=== PATIENT | female | born 1940 | race Caucasian/White ===

== ENCOUNTER → 2017-05-21 | Outpatient (CLI) | payer MEDICARE ==
[~2017-05-21] MED LIST: GABAPENTIN300 MG PO; LOSARTAN POTASS50 MG PO; NAPROXEN500 MG PO; PRAVASTATIN SOD80 MG PO; ZETIA10 MG PO
--- NOTE | 2017-05-24 16:03 | Diagnostic Imaging Report ---
Examination: MRI SPINE LUMBAR WITHOUT CONTRAST History: 77-year-old female with chronic back pain radiating down the right lower extremity. Comparison studies: X-rays of lumbar spine performed April 28, 2017 and June 02, 2010. Technique: Sagittal, coronal and axial T2 , sagittal T1 and STIR; axial spin density oblique. Findings: Number of lumbar vertebral bodies: Five. Alignment: Normal lordosis. Mild leftward curvature centered at L3-L4. Soft tissues: No T2 hyperintense inflammatory changes. Posterior paraspinal soft tissues and muscles: No abnormality. Lower thoracic cord: Normal in signal and morphology. The tip of the conus is at L1-L2. Cauda equina: No masses. No arachnoiditis. Vertebrae: No fractures, infection or neoplasm. Degenerative changes: L1-L2: Asymmetric to the right disc bulge results in mild canal stenosis and moderate right and mild left neural foraminal narrowing. L2-L3: Asymmetric to the right disc bulge results in moderate right and mild left neural foraminal narrowing and mild canal stenosis. L3-L4: Asymmetric to the right disc bulge, mild bilateral facet arthropathy and prominent posterior epidural fat result in moderate right neural foraminal narrowing and moderate canal stenosis. No left foraminal narrowing. L4-L5: Diffuse disc bulge with central disc protrusion and mild bilateral facet arthropathy result in mild bilateral neural foraminal narrowing and severe canal stenosis. L5-S1: Diffuse disc bulge and mild bilateral facet arthropathy result in moderate left neural foraminal narrowing. No right foraminal or canal stenosis. IMPRESSION: 1. Degenerative changes at L2-L5 S1 with severe canal stenosis at L4-L5, moderate canal stenosis at L3-L4 and mild canal stenosis at L1-L2 and L2-L3. 2. Moderate right foraminal narrowing from L1-L2 through L3-L4 and moderate left foraminal narrowing at L5-S1. 3. Mild leftward curvature centered at L3-L4. Signed by: Dr. Nikkie Hill M.D. on 05/24/2017 3:59 PM
== END ==
LOC: MRI 14:08
PROVIDERS: ATTEND Family Medicine
DX: M48.061 Spinal stenosis, lumbar region without neurogenic claudication (principal); M51.36 Other intervertebral disc degeneration, lumbar region
CPT/HCPCS: 72148

== ENCOUNTER → 2018-07-16 | Day surgery (SDC) | payer MEDICARE ==
[~2018-07-16] MED LIST changes: +CENTRUM SILVER1 EAC3 PO; +CYMBALTA60 MG PO; +FAMOTIDINE20 MG PO; +FENTANYL CITRATE/PF 100MCG/2 ML INJ ONE; +FERROUS SULFAT325 MG PO; +LOSARTAN-HCTZ1 EAC1 PO; +MIDAZOLAM HCL 2 MG/2 ML VIAL ONE; +PROPOFOL IV EMULSION 10 MG/ML 50 ML VIAL ONE; +VITAMIN D32000 UNIT PO; +tylenol PO
--- OUTSIDE RECORDS SUMMARY | 2018-07-16 08:35 | XMS REPORT ---
Author Axel Howe [facility] eClinicalWorks Address Unknown Phone Unavailable Care Team Providers Care Dipper Operator Name Role Phone Axel Zhang CP Unavailable Encounters Encounter Location Date Referral Axel Zhang MD October 19, 2013 pt call Axel Zhang MD November 02, 2013 LEG PAINS Axel Zhang MD September 24, 2013 Unknown Axel Zhang MD October 14, 2013 New order form For MRI Axel Zhang MD September 28, 2013 refill hydrocodone Axel Zhang MD November 19, 2013 Gabapentin Axel Zhang MD September 25, 2013 reschedule f/u Axel Zhang MD September 24, 2013 Gabapentin Axel Zhang MD November 18, 2013 MRI Axel Zahng MD November 06, 2013 Pt back pain update Axel Zhang MD November 18, 2013 Problems Problem Type Condition ICD-9 Code Onset Dates Condition Status Problem Allergy, unspecified not elsewhere classified 995.3 Active Problem Inflammatory Arthritis 714.0 Active Problem Lumbar Radiculopathy 724.4 Active Problem Polyarthritis, multiple sites 716.59 Active Social History Social History Element Qualifiers Date Reported Tobacco Use: . Are you a:: former smoker , How long has it been since you last smoked?: 5-10 years October 14, 2013 Pets: . dogs October 14, 2013 Caffeine: yes. frequency:, 1-5 October 14, 2013 Exercise: yes. walking 3 times a week October 14, 2013 Alcohol: no. October 14, 2013 Occupation: . retired October 14, 2013 Summary Purpose eClinicalWorks Submission
--- OUTSIDE RECORDS SUMMARY | 2018-07-16 08:35 | XMS REPORT ---
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 Name Role Phone Axel Zhang Unavailable Encounters Encounter Location Date Referral Axel Zhang MD October 19, 2013 New order form For MRI Axel Zhang MD September 28, 2013 Gabapentin Axel Zhang MD September 25, 2013 reschedule f/u Axel Zhang MD September 24, 2013 Problems Problem Type Condition ICD-9 Code Onset Dates Condition Status Problem Allergy, unspecified not elsewhere classified 995.3 Active Problem Inflammatory Arthritis 714.0 Active Problem Lumbar Radiculopathy 724.4 Active Problem Polyarthritis, multiple sites 716.59 Active Assessment Inflammatory Arthritis 714.0 Active Medications Medication Code System Code Instructions Start Date End Date Status Dosage Gabapentin MEDISPAN [address]-05 300 MG Orally at bedtime September 24, 2013 Active 1 -2 capsule Hydrocodone-Acetaminophen MEDISPAN [address]-61 5-325 MG Orally every 12 hours September 24, 2013 October 24, 2013 Active 1 tablet as needed Social History Social History Element Qualifiers Date [...]
--- OUTSIDE RECORDS SUMMARY | 2018-07-16 08:35 | XMS REPORT | Continuity of Care Document ---
Author Author [facility] Interface Address Unknown Phone Unavailable Problems Problem Status Onset Date Classification Date Reported Comments Source Z12.31 - ENCNTR SCREEN MAMMOGRAM FOR MA Active 12/17/2016 [facility] SOB Active 06/01/2014 [place] Inflammatory Arthritis Active Diagnosis 06/10/2014 Aristides Zhang Polyarthritis, multiple sites Active Problem 06/10/2014 Aristides Zhang Allergy, unspecified not elsewhere classified Active Problem 06/10/2014 Aristides Zhang Lumbar Radiculopathy Active Problem 06/10/2014 Aristides Zhang Unspecified drug dependence Active Diagnosis 06/10/2014 Aristides Zhang Abnormal CHARLIE Active Problem 06/10/2014 Aristides Zhang Medications Medication Details Route Status Patient Instructions Ordering Provider Order Date Source Meloxicam 1 tablet Orally No Longer Active 7.5 MG Orally bid Leslie 05/18/2014 Aristides Zhang Hydrocodone-Acetaminophen 1 tablet as needed Orally No Longer Active 2.5-500 MG Orally every 6 hrs Leslie 11/19/2013 Aristides Zhang Gabapentin 1 -2 capsule Orally Active 300 MG Orally at bedtime Zhang 09/24/2013 Aristides Zhang Hydrocodone-Acetaminophen 1 tablet as needed Orally Active 5- 325 MG Orally every 12 hours Zhang 09/24/2013 Aristides Zhang Hydrocodone-Acetaminophen 1 tablet as needed Orally Active 5- 325 MG Orally every 12 hours Ol[place] 09/24/2013 Aristides Zhang Alendronate Sodium 1 tablet Orally Active 70 MG Orally [place] Aristides Zhang Pravastatin Sodium 1 tablet Orally Active 80 MG Orally Once a day Leslie Aristides Zhang Zetia 1 tablet Orally Active 10 MG Orally Once a day Leslie Aristides Zhang Naproxen 1 tablet as needed Orally Active 500 MG Orally every 12 hrs Leslie Aristides Zhang Losartan Potassium-HCTZ 1 tablet Orally Active 50-12.5 MG Orally Once a day Leslie Aristides Zhang Tramadol one tab orally Active 50 mg orally every 4-6 hours prn pain Leslie Aristides Zahng Duloxetine HCl 1 capsule Orally Active 30 MG Orally qd Leslie Aristides Zhang Aspirin 1 tablet Orally Active 81 MG Orally Once a day Leslie Aristides Zhang Gabapentin 2 caps NA Active 300 mg qd pm Leslie Aristides Zhang Ranitidine 75 as directed Orally Active 75 MG Orally three times a day Amarilis Zhang Cetirizine HCl 1 tablet Orally Active 10 MG Orally Twice a day Amarilis Zhang Allergies, Adverse Reactions, Alerts Substance Category Reaction Severity Reaction type Status Date Reported Comments Source N.K.D.A. Adverse Reaction Info Not Available Adverse Reaction Active 05/31/2014 Aristides Zhang Immunizations Immunization Date Given Site Status Last Updated Comments Source Results Order Name Results Value Reference Range Date Interpretation Comments Source Breast Mammo Diag UNI incl CAD MA Breast Mammo Diag UNI incl CAD MA - BREAST MAMMO DIAG UNI INCL CAD MA/R UNILATERAL RIGHT DIGITAL DIAGNOSTIC MAMMOGRAM WITH CAD: 01/02/2017 CLINICAL: Other Abnormal And Inconclusive Findings On Diagnostic Imaging Of Breast/R92.8. Current study was evaluated with a Computer Aided Detection (CAD) system. Comparison is made to exams dated: 12/22/2016 mammogram, 05/12/2014 mammogram, 05/09/2013 mammogram, 04/07/2012 mammogram - [facility], 02/09/2011 mammogram and 04/21/2009 mammogram - [facility]. There are scattered fibroglandular densities in the right breast. There is a group of lucent-centered calcifications in the right breast at 1 o'clock middle depth 8 cm from the nipple. This is not significantly changed in overall distribution since 2013. No other significant masses or calcifications are seen in the breast. IMPRESSION: BENIGN The grouped lucent-centered calcifications in the right breast appear benign. There is no mammographic evidence of malignancy. A 1 year screening mammogram is recommended. Professional services are provided by the [facility]. Jez Benoit M.D. cm/:01/02/2017 13:09:40 Licensed Professional Counselor: Shanta LOPEZ(R)(Kori), [facility] This exam was dictated and [facility] [id number] [facility] letter sent: Normal exam Mammogram BI-RADS: 2 Benign 01/02/2017 - - Read by: Randolph Calle MD Dictated Date/time: 01/02/17 13:09 Electronically Signed by: Randolph Calle MD 01/02/17 13:09 FINAL REPORT [facility] Breast Mammo Scrn MIGUEL incl CAD MA Breast Mammo Scrn MIGUEL incl CAD MA - BREAST MAMMO SCRN MIGUEL INCL CAD MA BILATERAL DIGITAL SCREENING MAMMOGRAM WITH CAD: 12/22/2016 CLINICAL: Screening/Z12.31. Current study was evaluated with a Computer Aided Detection (CAD) system. Comparison is made to exams dated: 05/12/2014 mammogram, 05/09/2013 mammogram and 04/07/2012 mammogram - [facility]. There are scattered fibroglandular densities in both breasts. There is a cluster of calcifications in the right breast at 1 o'clock middle depth 8 cm from the nipple. No other significant masses, calcifications, or other findings are seen in either breast. IMPRESSION: INCOMPLETE: NEEDS ADDITIONAL IMAGING EVALUATION The cluster of calcifications in the right breast is indeterminate. Spot magnification views are recommended. Professional services are provided by the [facility]. Ana Maria Quinteros M.D. /penrad:12/24/2016 11:34:17 Licensed Professional Counselor: Karol Lake [facility] This exam was dictated and interpreted by [id number] at [facility]. letter sent: Additional Imaging Mammogram BI-RADS: 0 Indeterminate 12/22/2016 - - Read by: Ana Maria Quinteros MD Dictated Date/time: 12/24/16 11:34 Electronically Signed by: Ana Maria Quinteros MD 12/24/16 11:34 FINAL REPORT [facility] Chest 2 views Chest 2 views Examination: Chest x-ray, 2 views History: 714.0 Rheumatoid Arthritis Comparison: 07/20/2013 Findings: The lungs are clear and without focal consolidation. The cardiomediastinal silhouette is within normal limits. No pleural effusion or pneumothorax is seen. The osseous structures are without focal abnormality. IMPRESSION: No acute cardiopulmonary disease. SL: 16 06/08/2014 - - Read by: Mckay Sanchez MD Dictated Date/time: 01/06/15 15:35 Electronically Signed by: Mckay Sanchez MD 06/08/14 15:35 FINAL REPORT [facility] Vital Signs Vital Sign Value Date Comments Source BMI Calculated 35.23 06/08/[address] [facility] Weight 81.818 06/08/[address] [facility] Height 152.4 cm 06/08/[address] [facility] Weight 179 05/31/2014 Aristides Zhang Height 61 05/31/2014 Aristides Zhang Temperature Oral (F) 98.2 F 05/31/2014 Aristides Zhang Heart Rate 76 05/31/2014 Aristides Zhang Diastolic (mm Hg) 84 05/31/2014 Aristides Zhang Systolic (mm Hg) 124 05/31/2014 Aristides Zhang Weight 183 10/14/2013 Aristides Zhang Height 61 10/14/2013 Aristides Zhang Weight 182 09/24/2013 Aristides Zhang Height 61 09/24/2013 Aristides Zhang Temperature Oral (F) 98.4 F 09/24/2013 Aristides Zhang Heart Rate 80 09/24/2013 Aristides Zhang Diastolic (mm Hg) 80 09/24/2013 Aristides Zhang Systolic (mm Hg) 130 09/24/2013 Aristides Zhang Encounters Location Location Details Encounter Type Encounter Number Reason For Visit Attending Provider ADM Date DC Date Status Source Axel Zhang MD LE[facility]INS [id number] 09/24/2013 09/24/2013 Aristides Zhang MD [facility] [id number] 09/24/2013 09/24/2013 Aristides Zhang MD LEG PAINS [id number] 09/24/2013 09/24/2013 Aristides Zhang MD LEG PAINS [id number] 09/24/2013 09/24/2013 Aristides Zhang MD LE[facility]INS [id number] 09/24/2013 09/24/2013 Aristides Zhang MD [facility] [id number] 09/24/2013 09/24/2013 Aristides Zhang MD LE[facility]INS [id number] 09/24/2013 09/24/2013 Aristides Zhang MD LEG PAINS [id number] 09/24/2013 09/24/2013 Aristides Zhang MD LEG PAINS [id number] 09/24/2013 09/24/2013 Aristides Zhang MD reschedule f/u [id number] 09/24/2013 09/24/2013 Aristides Zhang MD reschedule f/u [id number] 09/24/2013 09/24/2013 Arisitdes Zhang MD reschedule f/u [id number] 09/24/2013 09/24/2013 Aristides Zhang MD reschedule f/u [id number] 09/24/2013 09/24/2013 Aristides Zhang MD reschedule f/u [id number] 09/24/2013 09/24/2013 Aristides Zhang MD reschedule f/u [id number] 09/24/2013 09/24/2013 Aristides Zhang MD reschedule f/u [id number] 09/24/2013 09/24/2013 Aristides Zhang MD reschedule f/u [id number] 09/24/2013 09/24/2013 Aristides Zhang MD reschedule f/u [id number] 09/24/2013 09/24/2013 Aristides Zhang MD reschedule f/u [id number] 09/24/2013 09/24/2013 Aristides Zhang MD reschedule f/u [id number] 09/24/2013 09/24/2013 Aristides Zhang MD Gabapentin [id number] 09/25/2013 09/25/2013 Aristides Zhang MD Gabapentin [id number] 09/25/2013 09/25/2013 Aristides Zhang MD Gabapentin [id number] 09/25/2013 09/25/2013 Aristides Zhang MD Gabapentin [id number] 09/25/2013 09/25/2013 Aristides Zhang MD Gabapentin [id number] 09/25/2013 09/25/2013 Aristides Zhang MD Gabapentin [id number] 09/25/2013 09/25/2013 Aristides Zhang MD Gabapentin [id number] 09/25/2013 09/25/2013 Aristides Zhang MD Gabapentin [id number] 09/25/2013 09/25/2013 Aristides Zhang MD Gabapentin [id number] 09/25/2013 09/25/2013 Aristides Zhang MD Gabapentin [id number] 09/25/2013 09/25/2013 Aristides Zhang MD Gabapentin [id number] 09/25/2013 09/25/2013 Aristides Zhang MD Gabapentin [id number] 09/25/2013 09/25/2013 Aristides Zhang MD New order form For MRI [id number] 09/28/2013 09/28/2013 Aristides Zhang MD New order form For MRI [id number] 09/28/2013 09/28/2013 Aristides Zhang MD New order form For MRI [id number] 09/28/2013 09/28/2013 Aristides Zhang MD New order form For MRI [id number] 09/28/2013 09/28/2013 Aristides Zhang MD New order form For MRI [id number] 09/28/2013 09/28/2013 Aristides Zhang MD New order form For MRI [id number] 09/28/2013 09/28/2013 Aristides Zhang MD New order form For MRI [id number] 09/28/2013 09/28/2013 Aristides Zhang MD New order form For MRI [id number] 09/28/2013 09/28/2013 Aristides Zhang MD New order form For MRI [id number] 09/28/2013 09/28/2013 Aristides Zhang MD New order form For MRI [id number] 09/28/2013 09/28/2013 Aristides Zhang MD New order form For MRI [id number] 09/28/2013 09/28/2013 Aristides Zhang MD New order form For MRI [id number] 09/28/2013 09/28/2013 Aristides Zhang MD New order form For MRI [id number] 09/28/2013 09/28/2013 Aristides Zhang MD Unknown [id number] 10/14/2013 10/14/2013 Aristides Zhang MD Unknown [id number] 10/14/2013 10/14/2013 Aristides Zhang MD Unknown [id number] 10/14/2013 10/14/2013 Aristides Zhang MD Unknown [id number] 10/14/2013 10/14/2013 Aristides Zhang MD Unknown [id number] 10/14/2013 10/14/2013 Aristides Zhang MD Unknown [id number] 10/14/2013 10/14/2013 Aristides Zhang MD Unknown [id number] 10/14/2013 10/14/2013 Aristides Zhang MD Unknown [id number] 10/14/2013 10/14/2013 Aristides Zhang MD Unknown [id number] 10/14/2013 10/14/2013 Aristides Zhang MD Referral [id number] 10/19/2013 10/19/2013 Aristides Zhang MD Referral [id number] 10/19/2013 10/19/2013 Aristides Zhang MD Referral [id number] 10/19/2013 10/19/2013 Aristides Zhang MD Referral [id number] 10/19/2013 10/19/2013 Aristides Zhang MD Referral [id number] 10/19/2013 10/19/2013 Aristides Zhang MD Referral [id number] 10/19/2013 10/19/2013 Aristides Zhang MD Referral [id number] 10/19/2013 10/19/2013 Aristides Zhang MD Referral [id number] 10/19/2013 10/19/2013 Aristides Zhang MD Referral [id number] 10/19/2013 10/19/2013 Aristides Zhang MD Referral [id number] 10/19/2013 10/19/2013 Aristides Zhang MD pt call [id number] 11/02/2013 11/02/2013 Aristides Zhang MD pt call [id number] 11/02/2013 11/02/2013 Aristides Zhang MD pt call [id number] 11/02/2013 11/02/2013 Aristides Zhang MD pt call [id number] 11/02/2013 11/02/2013 Aristides Zhang MD pt call [id number] 11/02/2013 11/02/2013 Aristides Zhang MD pt call [id number] 11/02/2013 11/02/2013 Aristides Zhang MD pt call [id number] 11/02/2013 11/02/2013 Aristides Zhang MD pt call [id number] 11/02/2013 11/02/2013 Aristides Zhang MD pt call [id number] 11/02/2013 11/02/2013 Aristides Zhang MD MRI [id number] 11/06/2013 11/06/2013 Aristides Zhang MD MRI [id number] 11/06/2013 11/06/2013 Aristides Zhang MD MRI [id number] 11/06/2013 11/06/2013 Aristides Zhang MD MRI [id number] 11/06/2013 11/06/2013 Aristides Zhang MD MRI [id number] 11/06/2013 11/06/2013 Aristides Zhang MD MRI [id number] 11/06/2013 11/06/2013 Aristides Zhang MD MRI [id number] 11/06/2013 11/06/2013 Aristides Zhang MD MRI [id number] 11/06/2013 11/06/2013 Aristides Zhang MD MRI [id number] 11/06/2013 11/06/2013 Aristides Zhang MD Pt back pain update [id number] 11/18/2013 11/18/2013 Aristides Zhang MD Pt back pain update [id number] 11/18/2013 11/18/2013 Aristides Zhang MD Pt back pain update [id number] 11/18/2013 11/18/2013 Aristides Zhang MD Pt back pain update [id number] 11/18/2013 11/18/2013 Aristides Zhang MD Pt back pain update [id number] 11/18/2013 11/18/2013 Aristides Zhang MD Pt back pain update [id number] 11/18/2013 11/18/2013 Aristides Zhang MD Pt back pain update [id number] 11/18/2013 11/18/2013 Aristides Zhang MD Pt back pain update [id number] 11/18/2013 11/18/2013 Aristides Zhang MD Pt back pain update [id number] 11/18/2013 11/18/2013 Aristides Zhang MD Gabapentin [id number] 11/18/2013 11/18/2013 Aristides Zhang MD Gabapentin [id number] 11/18/2013 11/18/2013 Aristides Zhang MD Gabapentin [id number] 11/18/2013 11/18/2013 Aristides Zhang MD Gabapentin [id number] 11/18/2013 11/18/2013 Aristides Zhang MD Gabapentin [id number] 11/18/2013 11/18/2013 Aristides Zhang MD Gabapentin [id number] 11/18/2013 11/18/2013 Aristides Zhang MD Gabapentin [id number] 11/18/2013 11/18/2013 Aristides Zhang MD Gabapentin [id number] 11/18/2013 11/18/2013 Aristides Zhang MD Gabapentin [id number] 11/18/2013 11/18/2013 Aristides Zhang MD refill hydrocodone [id number] 11/19/2013 11/19/2013 Aristides Zhang MD refill hydrocodone [id number] 11/19/2013 11/19/2013 Aristides Zhang MD refill hydrocodone [id number] 11/19/2013 11/19/2013 Aristides Zhang MD refill hydrocodone [id number] 11/19/2013 11/19/2013 Aristides Zhang MD refill hydrocodone [id number] 11/19/2013 11/19/2013 Aristides Zhang MD refill hydrocodone [id number] 11/19/2013 11/19/2013 Aristides Zhang MD refill hydrocodone [id number] 11/19/2013 11/19/2013 Aristides Zhang MD refill hydrocodone [id number] 11/19/2013 11/19/2013 Aristides Zhang MD refill hydrocodone [id number] 11/19/2013 11/19/2013 Aristides Zhang MD No longer wants to be seen here [id number] 12/15/2013 12/15/2013 Aristides Zhang MD No longer wants to be seen here [id number] 12/15/2013 12/15/2013 Aristides Zhang [facility] [id number] Angel Zepeda 05/12/2014 05/13/2014 LINO Zhang MD F/U [id number] 05/31/2014 05/31/2014 Aristides Zhang [facility] Outpatient [id number] Celiamarina Leslie 06/08/2014 06/09/2014 [facility] [id number] Howard Cardenas 12/22/2016 12/23/2016 LINO Wayne [facility] [id number] Howard Cardenas 01/02/2017 01/03/2017 [facility] Procedures Procedure Code Date Perfomer Comments Source
--- OUTSIDE RECORDS SUMMARY | 2018-07-16 08:35 | XMS REPORT ---
Author Ramiro Mosley [facility] eClinicalWorks Address Unknown Phone Unavailable Care Team Providers Care Slope Tender Name Role Phone Ramiro Olmos Unavailable Allergies, Adverse Reactions, Alerts Substance Reaction Event Type N.K.D.A. Info Not Available Non Drug Allergy Encounters Encounter Location Date Referral Aexl Zhang MD October 19, 2013 pt call Axle Zhang MD November 02, 2013 LEG PAINS Axel Zhang MD September 24, 2013 Unknown Axel Zhang MD October 14, 2013 New order form For MRI Axel Zhang MD September 28, 2013 refill hydrocodone Axel Zhang MD November 19, 2013 Gabapentin Axel Zhang MD September 25, 2013 reschedule f/u Axel Zhang MD September 24, 2013 Gabapentin Axel Zhang MD November 18, 2013 MRI Axel Zhang MD November 06, 2013 Pt back pain update Axel Zhang MD November 18, 2013 Problems Problem Type Condition ICD-9 Code Onset Dates Condition Status Problem Inflammatory Arthritis 714.0 Active Problem Polyarthritis, multiple sites 716.59 Active Problem Allergy, unspecified not elsewhere classified 995.3 Active Assessment Inflammatory Arthritis 714.0 Active Assessment Lumbar Radiculopathy 724.4 Active Medications Medication Code System Code Instructions Start Date End Date Status Dosage Pravastatin Sodium [facility] [address]-50 80 MG Orally Once a day Active 1 tablet Alendronate Sodium [facility] [address]-79 70 MG Orally Active 1 tablet Tramadol Unknown 0 50 mg orally every 4-6 hours prn pain Active one tab Gabapentin [facility] [address]-08 300 MG Orally at bedtime September 24, 2013 Active 1 -2 capsule Hydrocodone-Acetaminophen [facility] [address]-04 5-325 MG Orally every 12 hours September 24, 2013 October 24, 2013 Active 1 tablet as needed Ranitidine 75 [facility] [address]-19 75 MG Orally three times a day Active as directed Cetirizine HCl [facility] [address]-95 10 MG Orally Twice a day Active 1 tablet Zetia [facility] [address]-12 10 MG Orally Once a day Active 1 tablet Losartan Potassium-HCTZ [facility] [address]-42 50-12.5 MG Orally Once a day Active 1 tablet Social History Social History Element Qualifiers Date [...] 2013 Occupation: . retired October 14, 2013 Vital Signs Date/Time: September 24, 2013 Weight 182 lbs Height 61 in Temperature 98.4 F Cardiac Monitoring Heart Rate 80 /min Blood Pressure Diastolic 80 mm Hg Blood Pressure Systolic 130 mm Hg Results CYCLIC CITRULLINATED PEPTIDE (CCP) AB (IGG) CYCLIC CITRULLINATED PEPTIDE (CCP) AB (IGG)(- UNITS) <16 CHARLIE IFA SCREEN W/REFL TO TITER AND PATTERN, IFA CHARLIE SCREEN, IFA(-NEGATIVE ) POSITIVE CHARLIE TITER(- titer) > OR=1:1280 CHARLIE PATTERN(- ) CENTROMERE Centromere Antibody Screen CENTROMERE B ANTIBODY(-<1.0 NEG AI) >8.0 POS COMPREHENSIVE METABOLIC PANEL W/EGFR SODIUM(-135-146 mmol/L) 137 BUN/CREATININE RATIO(-6-22 (calc)) NOT APPLICABLE CHLORIDE(-98-110 mmol/L) 101 POTASSIUM(-3.5-5.3 mmol/L) 4.3 CALCIUM(-8.6-10.4 mg/dL) 9.3 PROTEIN, TOTAL(-6.1-8.1 g/dL) 7.0 CARBON DIOXIDE(-19-30 mmol/L) 28 ALBUMIN/GLOBULIN RATIO(-1.0-2.5 (calc)) 1.5 eGFR NON-AFR. [place]AN(-> OR=60 mL/min/1.73m2) 73 BILIRUBIN, TOTAL(-0.2-1.2 mg/dL) 0.3 eGFR (-> OR=60 mL/min/1.73m2) 84 UREA NITROGEN (BUN)(-7-25 mg/dL) 18 ALBUMIN(-3.6-5.1 g/dL) 4.2 GLOBULIN(-1.9-3.7 g/dL (calc)) 2.8 CREATININE(-0.60-0.93 mg/dL) 0.81 ALT(-6-29 U/L) 22 GLUCOSE(-65-99 mg/dL) 85 ALKALINE PHOSPHATASE(-33-130 U/L) 60 AST(-10-35 U/L) 20 SED RATE BY MODIFIED WESTERGREN SED RATE BY MODIFIED WESTERGREN(-< OR=30 mm/h) 14 SCL-70 ANTIBODY SCL-70 ANTIBODY(-<1.0 NEG AI) <1.0 NEG CBC (INCLUDES DIFF/PLT) WHITE BLOOD CELL COUNT(-3.8-10.8 Thousand/uL) 8.9 RED BLOOD CELL COUNT(-3.80-5.10 Million/uL) 4.47 HEMOGLOBIN(-11.7-15.5 g/dL) 12.3 RDW(-11.0-15.0 %) 14.8 PLATELET COUNT(-140-400 Thousand/uL) 325 BASOPHILS(- %) 0.4 EOSINOPHILS(- %) 5.1 HEMATOCRIT(-35.0-45.0 %) 38.7 MONOCYTES(- %) 8.7 MCV(-80.0-100.0 fL) 86.7 LYMPHOCYTES(- %) 17.6 MCH(-27.0-33.0 pg) 27.5 NEUTROPHILS(- %) 68.2 MCHC(-32.0-36.0 g/dL) 31.7 ABSOLUTE NEUTROPHILS(-4244-7134 cells/uL) 6070 ABSOLUTE LYMPHOCYTES(-850-3900 cells/uL) 1566 ABSOLUTE MONOCYTES(-200-950 cells/uL) 774 ABSOLUTE EOSINOPHILS(-15-500 cells/uL) 454 ABSOLUTE BASOPHILS(-0-200 cells/uL) 36 RHEUMATOID FACTOR RHEUMATOID FACTOR(-<14 IU/mL) 11 C-REACTIVE PROTEIN C-REACTIVE PROTEIN(-<0.80 mg/dL) 0.95 Summary Purpose eClinicalWorks Submission
--- OUTSIDE RECORDS SUMMARY | 2018-07-16 08:35 | XMS REPORT ---
Author Axel Howe [facility] eClinicalWorks Address Unknown Phone Unavailable Care Team Providers Care Actionscript Developer Name Role Phone Axel Zhang CP Unavailable [...] 716.59 Active Assessment Inflammatory Arthritis 714.0 Active Social History Social History Element Qualifiers [...]
--- OUTSIDE RECORDS SUMMARY | 2018-07-16 08:35 | XMS REPORT ---
Author Axel Howe [facility] eClinicalWorks Address Unknown Phone Unavailable Care Team Providers Care Oracle Database Consultant Name Role Phone Axel Zhang Unavailable Encounters Encounter Location Date New order form For MRI Axel Zhang MD September 28, 2013 Gabapentin Axel Zhang MD September 25, 2013 Problems Problem Type Condition ICD-9 Code Onset Dates Condition Status Problem Inflammatory Arthritis 714.0 Active Problem Polyarthritis, multiple sites 716.59 Active Problem Allergy, unspecified not elsewhere classified 995.3 Active Medications Medication Code System Code Instructions Start Date End Date Status Dosage Gabapentin [facility] [address]-89 300 MG Orally at bedtime September 24, 2013 Active 1 -2 capsule Social History Social History Element Qualifiers Date Reported Pets: . dogs September 24, 2013 Caffeine: yes. frequency:, 1-5 September 24, 2013 Exercise: yes. walking 3 times a week September 24, 2013 Alcohol: no. September 24, 2013 Occupation: . retired September 24, 2013 Vital Signs Date/Time: September 24, 2013 Weight 182 lbs Height 61 inches Temperature 98.4 F Cardiac Monitoring Heart Rate 80 Beats per Minute Blood Pressure Diastolic 80 mm Hg Blood Pressure Systolic 130 mm Hg Summary Purpose eClinicalWorks Submission
--- OUTSIDE RECORDS SUMMARY | 2018-07-16 08:35 | XMS REPORT ---
Author Axel Howe [facility] eClinicalWorks Address Unknown Phone Unavailable Care Team Providers Care Nylon Machine Operator Name Role Phone Axel Zhang CP [...]
--- OUTSIDE RECORDS SUMMARY | 2018-07-16 08:35 | XMS REPORT ---
Author Author Axel Zhang [facility] eClinicalWorks Address Unknown Phone Unavailable Care Team Providers Care Stockbroker Name Role Phone Axel Zhang CP Unavailable Encounters Encounter Location Date New order form For MRI Axel Zhang MD September 28, 2013 Problems Problem Type Condition ICD-9 Code Onset Dates Condition Status Problem Inflammatory Arthritis 714.0 Active Problem Polyarthritis, multiple sites 716.59 Active Problem Allergy, unspecified not elsewhere classified 995.3 Active Assessment Lumbar Radiculopathy 724.4 Active Social History Social History Element Qualifiers [...]
--- OUTSIDE RECORDS SUMMARY | 2018-07-16 08:35 | XMS REPORT ---
Author Axel Howe [facility] eClinicalWorks Address Unknown Phone Unavailable Care Team Providers Care Avionics Repair Technician Name Role Phone Axel Zhang CP Unavailable [...] Active Problem Polyarthritis, multiple sites 716.59 Active Medications Medication Code System Code Instructions Start Date End Date Status Dosage Hydrocodone-Acetaminophen [facility] [address]-43 2.5-500 MG Orally every 6 hrs November 19, 2013 Active 1 tablet as needed Social [...]
--- OUTSIDE RECORDS SUMMARY | 2018-07-16 08:35 | XMS REPORT ---
Author Axel Howe [facility] eClinicalWorks Address Unknown Phone Unavailable Care Team Providers Care Primer Assembler Name Role Phone Axel Zhang CP Unavailable [...] Start Date End Date Status Dosage Gabapentin [facility] [address]-08 300 MG Orally at bedtime September 24, [...]
--- OUTSIDE RECORDS SUMMARY | 2018-07-16 08:35 | XMS REPORT ---
Author Axel Howe [facility] eClinicalWorks Address Unknown Phone Unavailable Care Team Providers Care Slab Depiler Operator Name Role Phone Axel Zhang Unavailable Encounters [...] Allergy, unspecified not elsewhere classified 995.3 Active Social History Social History Element Qualifiers [...]
--- OUTSIDE RECORDS SUMMARY | 2018-07-16 08:35 | XMS REPORT ---
Author Ramiro Mosley [facility] eClinicalWorks Address Unknown Phone Unavailable Care Team Providers Care Patient Care Coordinator Name Role Phone Ramiro Olmos Unavailable Allergies, Adverse Reactions, Alerts Substance Reaction Event Type N.K.D.A. Info Not Available Non Drug Allergy Encounters Encounter Location Date Referral Axel Zhang MD October 19, 2013 pt call Axel Zhang MD November 02, 2013 LEG PAINS Axel Zhang MD September 24, 2013 Unknown Axel Zahng MD October 14, 2013 New order form For MRI Axel Zhang MD September 28, 2013 refill hydrocodone Axel Zhang MD November 19, 2013 Gabapentin Axel Zhang MD September 25, 2013 reschedule f/u Axel Zhang MD September 24, 2013 Gabapentin Axel Zhagn MD November 18, 2013 MRI Axel Zhang MD November 06, 2013 Pt back pain update Axel Zhang MD November 18, 2013 Problems Problem Type Condition ICD-9 Code Onset Dates Condition Status Problem Allergy, unspecified not elsewhere classified 995.3 Active Problem Inflammatory Arthritis 714.0 Active Problem Lumbar Radiculopathy 724.4 Active Assessment Lumbar Radiculopathy 724.4 Active Problem Polyarthritis, multiple sites 716.59 Active Assessment Polyarthritis, multiple sites 716.59 Active Medications Medication Code System Code Instructions Start Date End Date Status Dosage [facility]ate [facility] [address]-34 70 MG Orally Active 1 tablet Pravastatin Sodium [facility] [address]-33 80 MG Orally Once a day Active 1 tablet Hydrocodone-Acetaminophen [facility] [address]-59 5-325 MG Orally every 12 hours September 24, 2013 October 24, 2013 Active 1 tablet as needed Zetia [facility] [address]-50 10 MG Orally Once a day Active 1 tablet Gabapentin [facility] [address]-62 300 MG Orally at bedtime September 24, 2013 Active 1 -2 capsule Naproxen [facility] [address]-76 500 MG Orally every 12 hrs Active 1 tablet as needed Losartan Potassium-HCTZ [facility] [address]-28 50-12.5 MG Orally Once a day Active 1 tablet Tramadol Unknown 0 50 mg orally every 4-6 hours prn pain Active one tab Social History Social History Element Qualifiers Date [...] retired October 14, 2013 Vital Signs Date/Time: October 14, 2013 Weight 183 lbs Height 61 in Results DS DNA-Crithidia Ifa w/ Reflex DNA AB (DS) CRITHIDIA,IFA(-NEGATIVE ) NEGATIVE DNA AB (DS) CRITHIDIA TITER(- ) TNP C3, C4, COMPLEMENT COMPLEMENT COMPONENT C3C(- mg/dL) 161 COMPLEMENT COMPONENT C4C(-ADULTS: 16-47 mg/dL) 47 COMPLEMENT, TOTAL (CH50)(-31-60 U/mL) 50 SM AND SM/BREAKER TENDER ANTIBODIES SM/BREAKER TENDER ANTIBODY(-<1.0 NEG AI) <1.0 NEG SM ANTIBODY(-<1.0 NEG AI) <1.0 NEG Summary Purpose eClinicalWorks Submission
--- OUTSIDE RECORDS SUMMARY | 2018-07-16 08:36 | XMS REPORT ---
Author Author Rita Nelson [facility] eClinicalWorks Address Unknown Phone Unavailable Care Team Providers Care Color Card Maker Name Role Phone Rita Nelson Unavailable Allergies, Adverse Reactions, Alerts Substance Reaction Event Type N.K.D.A. Info Not Available Non Drug Allergy Encounters Encounter Location Date Referral Axel Zhang MD October 19, 2013 pt call Axel Zhang MD November 02, 2013 LEG PAINS Axle Zhang MD September 24, 2013 Unknown Axel Zhang MD October 14, 2013 New order form For MRI Axel Zhang MD September 28, 2013 Gabapentin Axel Zhang MD September 25, 2013 reschedule f/u Axel Zhang MD September 24, 2013 Gabapentin Axel Zhang MD November 18, 2013 MRI Axel Zhang MD November 06, 2013 Pt back pain update Axel Zhang MD November 18, 2013 F/U Axel Zhang MD May 31, 2014 refill hydrocodone xAel Zhang MD November 19, 2013 No longer wants to be seen here Axel Zhang MD December 15, 2013 Problems Problem Type Condition ICD-9 Code Onset Dates Condition Status Assessment Inflammatory Arthritis 714.0 Active Assessment Unspecified drug dependence 304.90 Active Problem Abnormal CHARLIE 795.79 Active Problem Lumbar Radiculopathy 724.4 Active Problem Unspecified drug dependence 304.90 Active Problem Polyarthritis, multiple sites 716.59 Active Assessment Abnormal CHARLIE 795.79 Active Problem Allergy, unspecified not elsewhere classified 995.3 Active Problem Inflammatory Arthritis 714.0 Active Medications Medication Code System Code Instructions Start Date End Date Status Dosage [facility]roxen [facility] [address]-60 500 MG Orally every 12 hrs Active 1 tablet as needed Zetia [facility] [address]-48 10 MG Orally Once a day Active 1 tablet Duloxetine HCl [facility] [address]-50 30 MG Orally qd Active 1 capsule Aspirin [facility] [address]-93 81 MG Orally Once a day Active 1 tablet Tramadol Unknown 0 50 mg orally every 4-6 hours prn pain Active one tab Losartan Potassium-HCTZ [facility] [address]-46 50-12.5 MG Orally Once a day Active 1 tablet Meloxicam [facility] [address]-36 7.5 MG Orally bid May 18, 2014 Inactive 1 tablet Hydrocodone-Acetaminophen [facility] [address]-32 2.5-500 MG Orally every 6 hrs November 19, 2013 Inactive 1 tablet as needed Pravastatin Sodium [facility] [address]-38 80 MG Orally Once a day Active 1 tablet Gabapentin [facility] 68360436083 300 mg qd pm Active 2 caps Social History Social History Element Qualifiers Date Reported Tobacco Use: . Are you a:: former smoker , How long has it been since you last smoked?: 5-10 years May 31, 2014 Pets: . dogs May 31, 2014 Caffeine: yes. frequency:, 1-5 May 31, 2014 Exercise: yes. walking 3 times a week May 31, 2014 Alcohol: no. May 31, 2014 Occupation: . retired May 31, 2014 Vital Signs Date/Time: May 31, 2014 Weight 179 lbs Height 61 in Temperature 98.2 F Cardiac Monitoring Heart Rate 76 /min Blood Pressure Diastolic 84 mm Hg Blood Pressure Systolic 124 mm Hg Results COMPREHENSIVE METABOLIC PANEL W/EGFR CALCIUM(-8.6-10.4 mg/dL) 9.6 CARBON DIOXIDE(-19-30 mmol/L) 28 ALT(-6-29 U/L) 16 CREATININE(-0.60-0.93 mg/dL) 0.79 AST(-10-35 U/L) 20 eGFR NON-AFR. THAI(-> OR=60 mL/min/1.73m2) 74 ALKALINE PHOSPHATASE(-33-130 U/L) 62 eGFR (-> OR=60 mL/min/1.73m2) 86 BILIRUBIN, TOTAL(-0.2-1.2 mg/dL) 0.2 BUN/CREATININE RATIO(-6-22 (calc)) NOT APPLICABLE ALBUMIN/GLOBULIN RATIO(-1.0-2.5 (calc)) 1.6 SODIUM(-135-146 mmol/L) 137 GLOBULIN(-1.9-3.7 g/dL (calc)) 2.8 POTASSIUM(-3.5-5.3 mmol/L) 4.3 GLUCOSE(-65-99 mg/dL) 96 CHLORIDE(-98-110 mmol/L) 100 ALBUMIN(-3.6-5.1 g/dL) 4.4 UREA NITROGEN (BUN)(-7-25 mg/dL) 20 PROTEIN, TOTAL(-6.1-8.1 g/dL) 7.2 SED RATE BY MODIFIED WESTERGREN SED RATE BY MODIFIED WESTERGREN(-< OR=30 mm/h) 11 C-REACTIVE PROTEIN C-REACTIVE PROTEIN(-<0.80 mg/dL) 0.33 CBC (INCLUDES DIFF/PLT) MCHC(-32.0-36.0 g/dL) 33.4 MCH(-27.0-33.0 pg) 28.2 PLATELET COUNT(-140-400 Thousand/uL) 304 RDW(-11.0-15.0 %) 13.9 ABSOLUTE LYMPHOCYTES(-850-3900 cells/uL) 1685 ABSOLUTE MONOCYTES(-200-950 cells/uL) 753 ABSOLUTE NEUTROPHILS(-2057-0588 cells/uL) 5208 NEUTROPHILS(- %) 64.3 HEMATOCRIT(-35.0-45.0 %) 38.7 LYMPHOCYTES(- %) 20.8 MCV(-80.0-100.0 fL) 84.4 RED BLOOD CELL COUNT(-3.80-5.10 Million/uL) 4.58 ABSOLUTE EOSINOPHILS(-15-500 cells/uL) 413 ABSOLUTE BASOPHILS(-0-200 cells/uL) 41 HEMOGLOBIN(-11.7-15.5 g/dL) 12.9 BASOPHILS(- %) 0.5 WHITE BLOOD CELL COUNT(-3.8-10.8 Thousand/uL) 8.1 MONOCYTES(- %) 9.3 EOSINOPHILS(- %) 5.1 Summary Purpose eClinicalWorks Submission
--- OUTSIDE RECORDS SUMMARY | 2018-07-16 08:36 | XMS REPORT ---
Author [facility] Address Unknown Phone Unavailable Care Team Providers Care Lamination Assembler Name Role Phone RADHA LEGER Unavailable Unavailable Steven ARREAGA Unavailable Unavailable Payers Payer Name Policy Type Policy Number Effective Date Expiration Date Problems This patient has no known problems. Allergies, Adverse Reactions, Alerts Allergy Name Allergy Type Status Severity Reaction(s) Onset Date Inactive Date Treating Clinician Comments No Known Allergies DA Active U 2015-09-13 00:00:00 Medications This patient has no known medications. Results Test Description Test Time Test Comments Text Results Atomic Results Result Comments MRI SPINE LUMBAR WO [place] [address] Patient Name: CHIQUI HAIDER MR #: [id number] : 1940 Age/Sex: 77/F Req #: [id number] Adm Physician: Ordered by: RADHA LEGER DO Report #: [id number] Location: MRI Room/Bed: Procedure: [id number] MRI/MRI SPINE LUMBAR WO Exam Date: 05/21/17 Exam Time: 1455 REPORT STATUS: Signed Examination: MRI SPINE LUMBAR WITHOUT CONTRAST History: 77-year-old female with chronic back pain radiating down the right lower extremity. Comparison studies: X-rays of lumbar spine performed April 28, 2017 and June 02, 2010. Technique: Sagittal, coronal and axial T2 , sagittal T1 and STIR; axial spin density oblique. Findings: Number of lumbar vertebral bodies: Five. Alignment: Normal lordosis. Mild leftward curvature centered at L3-L4. Soft tissues: No T2 hyperintense inflammatory changes. Posterior paraspinal soft tissues and muscles: No abnormality. Lower thoracic cord: Normal in signal and morphology. The tip of the conus is at L1-L2. Cauda equina: No masses. No arachnoiditis. Vertebrae: No fractures, infection or neoplasm. Degenerative changes: L1-L2: Asymmetric to the right disc bulge results in mild canal stenosis and moderate right and mild left neural foraminal narrowing. L2-L3: Asymmetric to the right disc bulge results in moderate right and mild left neural foraminal narrowing and mild canal stenosis. L3-L4: Asymmetric to the right disc bulge, mild bilateral facet arthropathy and prominent posterior epidural fat result in m oderate right neural foraminal narrowing and moderate canal stenosis. No left foraminal narrowing. L4-L5: Diffuse disc bulge with central disc protrusion and mild bilateral facet arthropathy result in mild bilateral neural foraminal narrowing and severe canal stenosis. L5-S1: Diffuse disc bulge and mild bilateral facet arthropathy result in moderate left neural foraminal narrowing. No right foraminal or canal stenosis. IMPRESSION: 1. Degenerative changes at L2-L5 S1 with severe canal stenosis at L4-L5, moderate canal stenosis at L3-L4 and mild canal stenosis at L1-L2 and L2-L3. 2. Moderate right foraminal narrowing from L1-L2 through L3-L4 and moderate left foraminal narrowing at L5-S1. 3. Mild leftward curvature centered at L3- L4. Signed by: Dr. Nikkie Hill M.D. on 05/24/2017 3:59 PM Dictated By: NIKKIE ANDREW MD 58 Transcribed By: GRECIA on 05/24/171558 COPY TO: RADHA LEGER DO CHEST 2 VIEWS [place] [address] Patient Name: CHIQUI HAIDER MR #: [id number] : 1940 Age/Sex: 77/F Req #: [id number] Adm Physician: Ordered by: GLADYS ARREAGA MD Report #: [id number] Location: ER Room/Bed: Procedure: [id number] DX/CHEST 2 VIEWS Exam Date: 04/28/17 Exam Time: 1510 REPORT STATUS: Signed EXAMINATION: PA and lateral views of the chest. COMPARISON: None CLINICAL HISTORY: Fall DISCUSSION: Lines/tubes: None. Lungs: The lungs are well inflated and clear. There is no evidence of pneumonia or pulmonary edema. Pleura: There is no pleural effusion or pneumothorax. Heart and mediastinum: The cardiomediastinal silhouette is normal. Bones and soft tissues: No acute bony abnormalities. IMPRESSION: No acute cardiopulmonary abnormalities. Signed by: Dr. David Martin M.D. on 04/28/2017 3:28 PM Dictated By: DAVID MARTIN MD 27 Transcribed By: GRECIA on 04/28/171527 COPY TO: GLADYS ARREAGA MD SP LUMBAR AP LATERAL 2-3VWS [place] [address] Patient Name: CHIQUI HAIDER MR #: [id number] : 1940 Age/Sex: 77/F Req #: [id number] Adm Physician: Ordered by: GLADYS ARREAGA MD Report #: [id number] Location: ER Room/Bed: Procedure: [id number] DX/SP LUMBAR AP LATERAL 2-3VWS Exam Date: 04/28/17 Exam Time: 1256 REPORT STATUS: Signed Exam: Lumbar spine 2 view History: Back pain Comparison: None. Findings: No fracture. Leftward lumbar curvature. Multilevel disc space narrowing most advanced at L3 and L4 at the concave aspect on the right. Lower lumbar facet arthropathy. No abnormal soft tissue calcification or soft tissue defect. Impression: Advanced lumbar spondylosis with severe degenerative disc disease L3-L4 and lower lumbar facet arthropathy. Signed by: Dr. David Martin M.D. on 04/28/2017 2:05 PM Dictated By: DAVID MARTIN MD 04 Transcribed By: GRECIA on 04/28/171404 COPY TO: GLADYS ARREAGA MD
--- OUTSIDE RECORDS SUMMARY | 2018-07-16 08:36 | XMS REPORT | Summary of Care ---
Author Author [facility] [place] Organization [facility] [place] Address Unknown Phone Unavailable Encounter HQ Encntr_alias(FIN) [id number] Date(s): 12/22/16 - 12/22/16 [facility] [place] [address] [phone] Discharge Disposition: Home or Self Care Attending Physician: Howard Cardenas DO Vital Signs No data available for this section Problem List No data available for this section Allergies, Adverse Reactions, Alerts No data available for this section Medications No data available for this section Results No data available for this section Immunizations No data available for this section Procedures No data available for this section Social History No data available for this section Assessment and Plan No data available for this section
--- OUTSIDE RECORDS SUMMARY | 2018-07-16 08:36 | XMS REPORT | Summary of Care ---
Author Author [facility] [place] Organization [facility] [place] Address Unknown Phone Unavailable Encounter [facility] Encntr_alias(FIN) [id number] Date(s): 01/02/17 - 01/02/17 [facility] [place] [address] [phone] Discharge Disposition: Home or Self Care Attending [...]
--- OUTSIDE RECORDS SUMMARY | 2018-07-16 08:36 | XMS REPORT ---
Author Author Axel Zhang [facility] eClinicalWorks Address Unknown Phone Unavailable Care Team Providers Care Heel Gouger Name Role Phone Axel Zhang CP Unavailable [...] Gabapentin Axel Zhang MD September 25, 2013 No longer wants to be seen here Axel Zhang MD December 15, 2013 reschedule f/u Axel Zhang MD September [...]
--- OUTSIDE RECORDS SUMMARY | 2018-07-16 08:36 | XMS REPORT | Summary of Care ---
Author Organization Unknown Address Unknown Phone Unavailable Encounter HQ Encntr_sushant(ERIKA) [id number] Date(s): 06/08/14 - 06/08/14 [facility] [address] Discharge Disposition: Home Physician Attending: Rita Nelson MD Physician_Referring: Rita Nelson MD Reason for Visit SOB Vital Signs Most recent to 1 oldest [Reference Range]: Height 152.4 cm (06/08/14 2:30 PM) Weight 81.818 kg (06/08/14 2:30 PM) Body Mass Index 35.23 m2 (06/08/14 2:30 PM) Problem List No data available for this section Allergies, Adverse Reactions, Alerts No data available for this section Medications No data available for this section Medications Administered During Your Visit No data available for this section Immunizations No data available for this section
[2018-07-16 10:59] LABS: BASOPHILS # (AUTO) 0.1 (0.0-0.1); BASOPHILS % 0.7 % (0.0-1.0); EOSINOPHILS # (AUTO) 0.6 (0.0-0.4); EOSINOPHILS % 7.6 % (0.0-6.0); HEMATOCRIT 35.7 % (34.2-44.1); HEMOGLOBIN 11.1 g/dL (12.0-16.0); LYMPHOCYTES # (AUTO) 1.6 (1.0-3.2); LYMPHOCYTES % 19.2 % (18.0-39.1); MEAN CORPUSCULAR HEMOGLOBIN 27.3 pg (28-32); MEAN CORPUSCULAR HGB CONC 31.1 g/dL (31-35); MEAN CORPUSCULAR VOLUME 87.7 fL (81-99); MONOCYTES # (AUTO) 0.8 (0.2-0.8); MONOCYTES % 9.4 % (4.4-11.3); NEUTROPHILS # (AUTO) 5.2 (2.1-6.9); NEUTROPHILS % 62.7 % (38.7-80.0); PLATELET COUNT 341 x10e3/uL (140-360); RED BLOOD COUNT 4.07 x10e6/uL (3.6-5.1); RED CELL DISTRIBUTION WIDTH 15.5 % (11.7-14.4)
[2018-07-16 14:00] VITALS: BP 110/58
--- NOTE | 2018-07-16 15:51 | Operative Report ---
DATE OF PROCEDURE: July 16, 2018 REFERRING PHYSICIAN: Dr. David Leger PROCEDURE PERFORMED: Esophagogastroduodenoscopy with biopsies. INDICATIONS FOR PROCEDURE: Upper abdominal pain and bloating. MEDICATION: Patient was done under MAC. Please see anesthesiologist's note. PROCEDURE: With the patient in the left lateral decubitus position, the flexible fiberoptic Olympus gastroscope was introduced into the esophagus under direct visualization without any difficulty. There was some patchy erythema noted in the distal esophagus. The scope was then advanced with ease into the stomach traversing a small sliding hiatal hernia. Mucosa overlying the antrum and the body revealed the body revealed some patchy erythema and mild to moderate edema, and biopsies were obtained and sent to stain for H. pylori. There was a suture granuloma noted in the antrum along the anterior wall. The pylorus was of normal contour and shape. It was intubated with ease. The scope was advanced all the way to the 2nd portion of the duodenum. Mucosa overlying the 2nd portion appeared to be within normal limits. The distal bulb revealed some patchy intense erythema and friability. The scope was then withdrawn back into the stomach and retroflexed. The mucosa overlying the fundus and the cardia appeared to be within normal limits. The scope was then straightened out. It was subsequently withdrawn. Patient tolerated the procedure well. IMPRESSION 1. Mild distal esophagitis. 2. Small sliding hiatal hernia. 3. Gastritis, biopsied. Biopsy sent to stain for Helicobacter pylori. 4. Suture granuloma, distal antrum anterior wall. 5. Duodenitis. PLAN: Follow up histology. Initiate Protonix 40 mg 1 p.o. q.a.m. a.c. Job#: [id number] RI cc:DAVID LEGER DO
== END | disposition home or self-care (01) ==
LOC: OR 08:09
PROVIDERS: ATTEND Internal Medicine Gastroenterology
DX: K29.70 Gastritis, unspecified, without bleeding (principal); K20.9 Esophagitis, unspecified; K44.9 Diaphragmatic hernia without obstruction or gangrene; K29.80 Duodenitis without bleeding; T81.89XA Other complications of procedures, not elsewhere classified, initial encounter; J44.9 Chronic obstructive pulmonary disease, unspecified; I10 Essential (primary) hypertension; E78.00 Pure hypercholesterolemia, unspecified; M19.90 Unspecified osteoarthritis, unspecified site; Y83.9 Surgical procedure, unspecified as the cause of abnormal reaction of the patient, or of later complication, without mention of misadventure at the time of the procedure; Z01.810 Encounter for preprocedural cardiovascular examination; Z01.812 Encounter for preprocedural laboratory examination
CPT/HCPCS: 36415; 43239; 85025; 88305; 88312; 93005; J2250; J2704

== ENCOUNTER → 2018-09-22 | Day surgery (SDC) | payer MEDICARE ==
[~2018-09-22] MED LIST changes: -FENTANYL CITRATE/PF 100MCG/2 ML INJ ONE; +GLUCAGON FOR INJ 1 MG VIAL ONE; +LIDOCAINE HCL 2% LOCAL INJ 5 ML SDV VIAL INJ ONE; -MIDAZOLAM HCL 2 MG/2 ML VIAL ONE; +PANTOPRAZOLE SO20 MG PO; +ULTRAM50 MG PO
--- OUTSIDE RECORDS SUMMARY | 2018-09-22 09:54 | XMS REPORT | Continuity of Care Document ---
Author Author [facility] Interface Address Unknown Phone Unavailable Problems Problem Status Onset Date Classification Date Reported Comments Source Z12.31 - ENCNTR SCREEN MAMMOGRAM FOR MA Active 12/17/2016 [facility] [place] SOB Active 06/01/2014 [place] Allergy, unspecified not elsewhere classified Active Problem 06/10/2014 Aristides Zhang Inflammatory Arthritis Active Diagnosis 06/10/2014 Aristides Zhang Lumbar Radiculopathy Active Problem 06/10/2014 Aristides Zhang Polyarthritis, multiple sites Active Problem 06/10/2014 Aristides Zhang Unspecified drug [...] every 12 hours [place] 09/24/2013 Aristides Zhang Naproxen 1 tablet as needed Orally Active 500 MG Orally every 12 hrs Leslie Aristides Zhang Zetia 1 tablet Orally Active 10 MG Orally Once a day Leslie Aristides Zhang Duloxetine HCl 1 capsule Orally Active 30 MG Orally qd Leslie Aristides Zhang Aspirin 1 tablet Orally Active 81 MG Orally Once a day Leslie Aristides Zhang Tramadol one tab orally Active 50 mg orally every 4-6 hours prn pain Leslie Aristides Zhang Losartan Potassium-HCTZ 1 tablet Orally Active 50-12.5 MG Orally Once a day Leslie Aristides Zhang Pravastatin Sodium 1 tablet Orally Active 80 MG Orally Once a day Leslie Aristides Zhang Gabapentin 2 caps NA Active 300 mg qd pm Leslie Aristides Zhang Alendronate Sodium 1 tablet Orally Active 70 MG Orally Amarilis Zhang Ranitidine 75 as directed Orally Active [...] 05/12/2014 mammogram, 05/09/2013 mammogram, 04/07/2012 mammogram - [facility], 02/09/2011 mammogram and 04/21/2009 mammogram - [facility]. There are scattered fibroglandular densities in the [...] Diagnostic Imaging. Jez Benoit M.D. cm/:01/02/2017 13:09:40 Support Services Specialist: Shanta LOPEZ(R)(Kori), [facility] This exam [facility] and [id number] sent: Normal exam Mammogram BI-RADS: 2 [...] mammogram, 05/09/2013 mammogram and 04/07/2012 mammogram - [facility]. There are scattered fibroglandular densities in both [...] recommended. Professional [facility]. Ana Maria Quinteros M.D. /penrad:12/24/2016 11:34:17 Support Services Specialist: Karol [place] [facility] This exam was dictated and interpreted by [id number] at [facility]. letter sent: Additional Imaging [...] Dictated Date/time: 01/06/15 15:35 Electronically Signed by: Mckya Sanchez MD 06/08/14 15:35 FINAL REPORT [facility] Vital Signs Vital Sign Value Date Comments Source BMI Calculated 35.23 06/08/2014 [facility] Weight 81.818 06/08/2014 [facility] Height 152.4 cm 06/08/2014 [facility] Weight 179 05/31/2014 Aristides Zhang Height [...] Status Source Axel Zhang MD LEG PAINS [id number] 09/24/2013 09/24/2013 Aristides Zhang MD LEG PAINS [id number] 09/24/2013 09/24/2013 Aristides Zhang MD LEG PAINS [id number] 09/24/2013 09/24/2013 Aristides Zhang MD LEG PAINS [id number] 09/24/2013 09/24/2013 Aristides Zhang MD LEG PAINS [id number] 09/24/2013 09/24/2013 Aristides Zhang MD LEG PAINS [id number] 09/24/2013 09/24/2013 Aristides Zhang MD LEG PAINS [id number] 09/24/2013 09/24/2013 Aristides Zhang MD LEG PAINS [id number] 09/24/2013 09/24/2013 Aristides Zhang MD LEG PAINS [id number] 09/24/2013 09/24/2013 Aristides Zhang MD reschedule f/u [id number] 09/24/2013 09/24/2013 Aristides Zhang MD reschedule f/u [id number] 09/24/2013 09/24/2013 Aristides Zhang MD reschedule f/u [id number] 09/24/2013 09/24/2013 Aristides Zhang MD reschedule f/u [id number] 09/24/2013 09/24/2013 Aristides Zhang MD reschedule f/u [id number] 09/24/2013 09/24/2013 Aristides Zhang MD reschedule f/u [id number] 09/24/2013 09/24/2013 Aristides Zhang MD reschedule f/u [id number] 09/24/2013 09/24/2013 Aristides Zhang MD reschedule f/u [id number] 09/24/2013 09/24/2013 Aristides Zhang MD reschedule f/u [id number] 09/24/2013 09/24/2013 Aristides Zhang MD reschedule f/u [id number] 09/24/2013 09/24/2013 Aristides Zhang MD reschedule f/u [id number] 09/24/2013 09/24/2013 Aristides Zhang MD Gabapentin [id number] 09/25/2013 09/25/2013 Aristides Zhang MD Gabapentin [id number] 09/25/2013 09/25/2013 Aristides Zhang MD Gabapentin [id number] 09/25/2013 09/25/2013 Aristides Zhang MD Gabapentin [id number] 09/25/2013 09/25/2013 Aristides Zhang MD Gabapentin [id number] 09/25/2013 09/25/2013 Aristides Zhang MD Gabapentin [id number] 09/25/2013 09/25/2013 Aristides Zhang MD Gabapentin [id number] 09/25/2013 09/25/2013 Aristides Zhang MD Gabapentin [id number] 09/25/2013 09/25/2013 Aristides Zhang MD Gabapentin [id number] 09/25/2013 09/25/2013 Aristides Zhang MD Gabapentin [id number] 09/25/2013 09/25/2013 Aristides Zhang MD Gabapentin [id number] 09/25/2013 09/25/2013 Aristides Zhang MD Gabapentin [id number] 09/25/2013 09/25/2013 Aristides Zhang MD New order form For MRI [id number] 09/28/2013 09/28/2013 Aristides Zhang MD New order form For MRI [id number] 09/28/2013 09/28/2013 Aristides Zhang MD New order form For MRI [id number] 09/28/2013 09/28/2013 Aristides Zhang MD New order form For MRI [id number] 09/28/2013 09/28/2013 Aristides Zhang MD New order form For MRI [id number] 09/28/2013 09/28/2013 Aristides Zhang MD New order form For MRI [id number] 09/28/2013 09/28/2013 Aristides Zhang MD New order form For MRI [id number] 09/28/2013 09/28/2013 Aristides Zhang MD New order form For MRI [id number] 09/28/2013 09/28/2013 Aristides Zhang MD New order form For MRI [id number] 09/28/2013 09/28/2013 Aristides Zhang MD New order form For MRI [id number] 09/28/2013 09/28/2013 Aristides Zhang MD New order form For MRI [id number] 09/28/2013 09/28/2013 Aristides Zhang MD New order form For MRI [id number] 09/28/2013 09/28/2013 Aristides Zhang MD New order form For MRI [id number] 09/28/2013 09/28/2013 Aristides Zhang MD Unknown [id number] 10/14/2013 10/14/2013 Aristides Zhang MD Unknown [id number] 10/14/2013 10/14/2013 Aristides Zhang MD Unknown [id number] 10/14/2013 10/14/2013 Aristides Zhang MD Unknown [id number] 10/14/2013 10/14/2013 Aristides Zhang MD Unknown [id number] 10/14/2013 10/14/2013 Aristides Zhang MD Unknown [id number] 10/14/2013 10/14/2013 Aristides Zhang MD Unknown [id number] 10/14/2013 10/14/2013 Aristides Zhang MD Unknown [id number] 10/14/2013 10/14/2013 Aristides Zhang MD Unknown [id number] 10/14/2013 10/14/2013 Aristides Zhang MD Referral [id number] 10/19/2013 10/19/2013 Aristides Zhang MD Referral [id number] 10/19/2013 10/19/2013 Aristides Zhang MD Referral [id number] 10/19/2013 10/19/2013 Aristides Zhang MD Referral [id number] 10/19/2013 10/19/2013 Aristides Zhang MD Referral [id number] 10/19/2013 10/19/2013 Aristides Zhang MD Referral [id number] 10/19/2013 10/19/2013 Aristides Zhang MD Referral [id number] 10/19/2013 10/19/2013 Aristides Zhang MD Referral [id number] 10/19/2013 10/19/2013 Aristides Zhang MD Referral [id number] 10/19/2013 10/19/2013 Aristides Zhang MD Referral [id number] 10/19/2013 10/19/2013 Aristides Zhang MD pt call [id number] 11/02/2013 11/02/2013 Aristides Zhang MD pt call [id number] 11/02/2013 11/02/2013 Aristides Zhang MD pt call [id number] 11/02/2013 11/02/2013 Aristides Zhang MD pt call [id number] 11/02/2013 11/02/2013 Aristides Zhang MD pt call [id number] 11/02/2013 11/02/2013 Aristides Zhang MD pt call [id number] 11/02/2013 11/02/2013 Aristides Zhang MD pt call [id number] 11/02/2013 11/02/2013 Aristides Zhang MD pt call [id number] 11/02/2013 11/02/2013 Aristides Zhang MD pt call [id number] 11/02/2013 11/02/2013 Aristides Zhang MD MRI [id number] 11/06/2013 11/06/2013 Aristides Zhang MD MRI [id number] 11/06/2013 11/06/2013 Aristides Zhang MD MRI [id number] 11/06/2013 11/06/2013 Aristides Zhang MD MRI [id number] 11/06/2013 11/06/2013 Aristides Zhang MD MRI [id number] 11/06/2013 11/06/2013 Aristides Zhang MD MRI [id number] 11/06/2013 11/06/2013 Aristides Zhang MD MRI [id number] 11/06/2013 11/06/2013 Aristides Zhang MD MRI [id number] 11/06/2013 11/06/2013 Aristides Zhang MD MRI [id number] 11/06/2013 11/06/2013 Aristides Zhang MD Pt back pain update [id number] 11/18/2013 11/18/2013 Aristides Zhang MD Pt back pain update [id number] 11/18/2013 11/18/2013 Aristides Zhang MD Pt back pain update [id number] 11/18/2013 11/18/2013 Aristides Zhang MD Pt back pain update [id number] 11/18/2013 11/18/2013 Aristides Zhang MD Pt back pain update [id number] 11/18/2013 11/18/2013 Aristides Zhang MD Pt back pain update [id number] 11/18/2013 11/18/2013 Aristides Zhang MD Pt back pain update [id number] 11/18/2013 11/18/2013 Aristides Zhang MD Pt back pain update [id number] 11/18/2013 11/18/2013 Aristides Zhang MD Pt back pain update [id number] 11/18/2013 11/18/2013 Aristides Zhang MD Gabapentin [id number] 11/18/2013 11/18/2013 Aristides Zhang MD Gabapentin [id number] 11/18/2013 11/18/2013 Aristides Zhang MD Gabapentin [id number] 11/18/2013 11/18/2013 Aristides Zhang MD Gabapentin [id number] 11/18/2013 11/18/2013 Aristides Zhang MD Gabapentin [id number] 11/18/2013 11/18/2013 Aristides Zhang MD Gabapentin [id number] 11/18/2013 11/18/2013 Aristides Zhang MD Gabapentin [id number] 11/18/2013 11/18/2013 Aristides Zhang MD Gabapentin [id number] 11/18/2013 11/18/2013 Aristides Zhang MD Gabapentin [id number] 11/18/2013 11/18/2013 Aristides Zhang MD refill hydrocodone [id number] 11/19/2013 11/19/2013 Aristides Zhang MD refill hydrocodone [id number] 11/19/2013 11/19/2013 Aristides Zhang MD refill hydrocodone [id number] 11/19/2013 11/19/2013 Aristides Zhang MD refill hydrocodone [id number] 11/19/2013 11/19/2013 Aristides Zhang MD refill hydrocodone [id number] 11/19/2013 11/19/2013 Aristides Zhang MD refill hydrocodone [id number] 11/19/2013 11/19/2013 Aristides Zhang MD refill hydrocodone [id number] 11/19/2013 11/19/2013 Aristides Zhang MD refill hydrocodone [id number] 11/19/2013 11/19/2013 Aristides Zhang MD refill hydrocodone [id number] 11/19/2013 11/19/2013 Aristides Zhang MD No longer wants to be seen here [id number] 12/15/2013 12/15/2013 Aristides Zhang MD No longer wants to be seen here [id number] 12/15/2013 12/15/2013 Aristides Zhang [facility] [place] [facility] [id number] Angel Zepeda 05/12/2014 05/13/2014 [facility] [place] Axel Zhang MD F/U [id number] 05/31/2014 05/31/2014 Aristides Zhang [facility] Outpatient [id number] Celiamarina Leslie 06/08/2014 06/09/2014 [facility] [place] [facility] [id number] Howard Cardenas 12/22/2016 12/23/2016 [facility] [place] [facility] [place] [facility] [id number] Howard Cardenas 01/02/2017 01/03/2017 [facility] [place] [facility] Phone Message [id number] 09/11/2018 09/13/2018 [facility] Phone Message [id number] 09/15/2018 09/17/2018 [facility] [id number] Seema Becerra 09/24/2018 Active [facility] Procedures Procedure Code Date Perfomer Comments Source
--- OUTSIDE RECORDS SUMMARY | 2018-09-22 09:55 | XMS REPORT | Summary of Care ---
Author Author [facility] Organization [facility] Address Unknown Phone Unavailable Encounter HQ Encntr_alias(FIN) [id number] Date(s): 09/11/18 - 09/12/18 [facility] [address] [place] [address]- [phone] Vital Signs No data available for this [...]
--- OUTSIDE RECORDS SUMMARY | 2018-09-22 09:55 | XMS REPORT | Summary of Care ---
Author Author [facility]surgery [facility] Organization [facility] Neuro[facility] Address Unknown Phone Unavailable Encounter HQ Encntr_alias(FIN) [id number] Date(s): 09/15/18 - 09/16/18 [facility] [address] [place] [address]- [phone] Vital Signs No data available for this [...]
[2018-09-22 14:48] VITALS: BP 135/82
--- NOTE | 2018-09-22 16:52 | Operative Report ---
DATE OF PROCEDURE: 09/22/2018 SURGEON: Jacob Byers MD PROCEDURE: Esophagogastroduodenoscopy with biopsies. 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 MEDICATIONS: The patient was done under MAC, please see anesthesiologist's note. PROCEDURE IN DETAIL: With the patient in left lateral decubitus position, flexible fiberoptic Olympus gastroscope was introduced into the esophagus under direct visualization without any difficulty. There was some patchy erythema noted in distal esophagus. A minute nodule was noted at the GE junction that was biopsied. The scope was then advanced with ease into the stomach traversing a moderate-sized hiatal hernia. Mucosa overlying the antrum and the body revealed some patchy erythema and koks-pb-cvyeryfz edema, biopsies were obtained and sent to stain for H pylori. Some suture material was noted to overlie the well healed previously described gastric ulcer. Pylorus was of normal contour and shape, it was intubated with ease and the scope was advanced all the way to the second portion of the duodenum. The scope was then withdrawn slowly, mucosa overlying the proximal second portion and the duodenal bulb appeared to be within normal limits. The scope was then withdrawn back into the stomach and retroflexed and mucosa overlying the fundus as well as that of the cardia appeared to be within normal limits. The previously described hiatal hernia was also noted in the retroflexed position. The scope was then straightened out, it was subsequently withdrawn. The patient tolerated the procedure well. IMPRESSION: 1. Mild distal esophagitis. 2. Minute nodule, GE junction biopsied. 3. Moderate-sized hiatal hernia. 4. Gastritis, biopsied. Biopsies sent to stain for Helicobacter pylori. 5. Suture material overlying well healed gastric ulcer, antrum. PLAN: Follow up histology. Continue Protonix 40 mg one p.o. a.c. b.i.d. Jacob Byers MD [facility] /[id number] cc: Rivera Cardenas DO
== END | disposition home or self-care (01) ==
LOC: ENDO 09:51
PROVIDERS: ATTEND Internal Medicine Gastroenterology
DX: K29.70 Gastritis, unspecified, without bleeding (principal); K31.7 Polyp of stomach and duodenum; K21.0 Gastro-esophageal reflux disease with esophagitis; K44.9 Diaphragmatic hernia without obstruction or gangrene; T18.2XXA Foreign body in stomach, initial encounter; I10 Essential (primary) hypertension; E78.6 Lipoprotein deficiency; X58.XXXA Exposure to other specified factors, initial encounter; Z96.649 Presence of unspecified artificial hip joint
CPT/HCPCS: 43239; 88305; 88312; J1610; J2001; J2704

== ENCOUNTER 2020-04-17 16:26 | Emergency (ER) | payer MEDICARE ==
[~2020-04-17] VITALS: Ht 154.9 cm; Wt 81.6 kg
[~2020-04-17 16:26] MED LIST changes: -GLUCAGON FOR INJ 1 MG VIAL ONE; -LIDOCAINE HCL 2% LOCAL INJ 5 ML SDV VIAL INJ ONE; -PROPOFOL IV EMULSION 10 MG/ML 50 ML VIAL ONE
--- OUTSIDE RECORDS SUMMARY | 2020-04-17 16:46 | XMS REPORT | Continuity of Care Document ---
Author Author [facility] t Organization [facility] Address [address] [place] [address] Phone Unavailable Care Team Providers Care Inpatient Services Director Name Role Phone RADHA CARDENAS Attphygraciela Unavailable Steven ARREAGA Attphygraciela Unavailable Payers Payer Name Policy Type Policy Number Effective Date Expiration Date S ource Problems Condition Name Condition Details Condition Category Status Onset Date Resolution Date Last Treatment Date Treating Clinician Comments Source Inflammatory Arthritis Infl ammatory Arthritis Active Diagnosis 06/10/2014 Aristides Zhang Diagnosis Active 2014-06-10 05:22:52 Leiyd Flor Polyarthritis, multiple sites Polyarthritis, multiple sites Active Problem 06/10/2014 Aristides Zhang Problem Active 2014-06-10 05:22:52 Leidy Flor Allergy, unspecified not elsewhere classified Allergy, unspecified not elsewhere classified Active Problem 06/10/2014 Aristides Zhang Problem Active 2014-06-10 05:22:52 Leidy Flor Lumbar Radiculopathy Lumb ar Radiculopathy Active Problem 06/10/2014 Aristides Zhang Problem Active 2014-06-10 05:22:52 Leidy Flor Unspecified drug dependence Un specified drug dependence Active Diagnosis 06/10/2014 Aristides Zhang Diagnosis Active 2014-06-10 05:22:52 Leidy Flor Abnormal CHARLIE Abno rmal CHARLIE Active Problem 06/10/2014 Aristides Zhang Problem Active 2014-06-10 05:22:52 [facility] Allergies, Adverse Reactions, Alerts Allergy Name Allergy Type Status Severity Reaction(s) Onset Date Inacti ve Date Treating Clinician Comments Source NSAIDS (Non-Steroidal Anti-Inflamma DA Active SV 2018-10-02 1 00:00:00 [facility] No Known Allergies DA Active U 2018-08-25 00:00:00 [facility] No Known Allergies DA Active U 2015-09-13 00:00:00 [facility] N.AliaABeth Yen Active Info Not Available 2014-05-31 00:00:00 [facility] Social History Social Habit Start Date Stop Date Quantity Comments Source TobaccoUse: 2014-05-31 00:00:00 2014-05-31 00:00:00 [facility] Medications Ordered Medication Name Filled Medication Name Start Date Stop Da te Current Medication? Ordering Clinician Indication Dosage Frequency Signature (SIG) Comments Components Source Pravastatin Sodium 2014-06-10 05:22:52 Yes Wajeeha Leslie 1 tablet [facility] Zetia 2014-06-10 05:22:52 Yes Wajeeha Leslie 1 ta blet [facility] Naproxen 2014-06-10 05:22:52 Yes Wajeeha Leslie 1 tablet as needed [facility] Losartan Potassium-HCTZ 2014-06-10 05:22:52 Yes Wajeeha Leslie 1 tablet [facility] Tramadol 2014-06-10 05:22:52 Yes Wajeeha Leslie o ne tab [facility] Duloxetine HCl 2014-06-10 05:22:52 Yes Wajeeha Leslie 1 capsule [facility] Aspirin 2014-06-10 05:22:52 Yes Wajeeha Leslie 1 tablet [facility] Gabapentin 2014-06-10 05:22:52 Yes Wajeeha Leslie 2 caps [facility] Meloxicam 2014-05-18 00:00:00 No Wajeeha Leslie 1 tablet [facility] Alendronate Sodium 2013-12-11 02:58:51 Yes Ramiro Olmos 1 tablet [facility] Ranitidine 75 2013-12-11 02:52:17 Yes Ramiro Olmos as directed [facility] Cetirizine HCl 2013-12-11 02:52:17 Yes Ramiro Olmos 1 tablet [facility] Hydrocodone-Acetaminophen 2013-11-19 00:00:00 No Nicolette Nelson 1 tablet as needed [facility] Gabapentin 2013-09-24 00:00:00 Yes Axeldarlene Loveer 1 -2 capsule [facility] Hydrocodone-Acetaminophen 2013-09-24 00:00:00 Yes Axel Loveer 1 tablet as needed [facility] Hydrocodone-Acetaminophen 2013-09-24 00:00:00 Yes Ramiro Olmos 1 tablet as needed [facility] Vital Signs Vital Name Observation Time Observation Value Comments Source Weight 2014-05-31 20:45:00 [facility] Height 2014-05-31 20:45:00 [facility] Temperature Oral (F) 2014-05-31 20:45:00 98.2 F [facility] Heart Rate 2014-05-31 20:45:00 [facility] Diastolic (mm Hg) 2014-05-31 20:45:00 [facility] Systolic (mm Hg) 2014-05-31 20:45:00 [facility] Weight 2013-10-14 18:00:00 [facility] Height 2013-10-14 18:00:00 [facility] Weight 2013-09-24 18:45:00 [facility] Height 2013-09-24 18:45:00 [facility] Temperature Oral (F) 2013-09-24 18:45:00 98.4 F [facility] Heart Rate 2013-09-24 18:45:00 [facility] Diastolic (mm Hg) 2013-09-24 18:45:00 [facility] Systolic (mm Hg) 2013-09-24 18:45:00 [facility] Procedures This patient has no known procedures. Encounters Start Date/Time End Date/Time Encounter Type [facility] En[facility] ID Source 2014-05-31 14:45:00 2014-05-31 14:45:00 Outpatient MD Axel Méndez MD [id number] Aristides Zhang MD 2013-12-15 11:25:00 2013-12-15 11:25:00 Outpatient MD Axel Méndez MD [id number] Aristides Zhang MD 2013-11-19 13:23:00 2013-11-19 13:23:00 Outpatient MD Axel Méndez MD [id number] Aristides Zhang MD 2013-11-18 09:52:00 2013-11-18 09:52:00 Outpatient MD Axel Méndez MD [id number] Aristides Zhang MD 2013-11-18 08:40:00 2013-11-18 08:40:00 Outpatient MD Axel Méndez MD [id number] Aristides Zhang MD 2013-11-06 09:16:00 2013-11-06 09:16:00 Outpatient MD Axel Méndez MD [id number] Aristides Zhang MD 2013-11-02 14:53:00 2013-11-02 14:53:00 Outpatient MD Axel Méndez MD [id number] Aristides Zhang MD 2013-10-19 11:18:00 2013-10-19 11:18:00 Outpatient MD Axel Méndez MD [id number] Aristides Zhang MD 2013-10-14 13:00:00 2013-10-14 13:00:00 Outpatient MD Axel Méndez MD [id number] Aristides Zhang MD 2013-09-28 15:34:00 2013-09-28 15:34:00 Outpatient MD Axel Méndez MD [id number] Aristides Zhang MD 2013-09-25 14:03:00 2013-09-25 14:03:00 Outpatient MD Axel Méndez MD [id number] Aristides Zhang MD 2013-09-24 17:07:00 2013-09-24 17:07:00 Outpatient MD Axel Méndez MD [id number] Aristides Zhang MD 2013-09-24 13:45:00 2013-09-24 13:45:00 Outpatient MD Axel Méndez MD [id number] Aristides Zhang MD Results Test Description Test Time Test Comments Results Result Comments Source PROTHROMBIN TIME 2018-10-21 18:40:00 Test Item PROTHROMBIN TIME PATIENT (test code = PTP) 11.2 seconds 9.0-14.0 N INTERNATIONAL NORMAL RATIO (test code = INR) 1.0 0.8-1.2 N The therapeutic range for oral anticoagulant therapy formost indications is an international normalized ratio (INR)of between 2.0 and 3.0. The recommended therapeutic INRrange for various clinical situations is listed below: Clinical Situation INR range Pulmonary e mbolism treatment (2.0-3.0)Venous thrombosis treatmentVenous thrombosis prophylaxis (high risk surgery)Prevention of systemic embolism from: Acute myocardial infarction Valvular heart disease Atrial fibrillation Mechanical prosthetic heart valves (2.5-3.5) IS PATIENT ON ANTICOAGULANTS? NTHROMBOPLASTIN TIME [id number] 18:40:00* Test Item Value Reference Range Interpretation Comments THROMBOPLASTIN TIME PARTIAL (test code = PTT) 27.9 seconds 25.0-36. 5 N IS PATIENT ON ANTICOAGULANTS? NCBC W/O [id number] 18:27:00* Test Item Value Reference Range Interpretation Comments WHITE BLOOD CELL (test code = WBC) 10.8 K/mm3 4.5-12.5 N RED BLOOD CELL (test code = RBC) 3.85 mill/mm3 3.7-5.2 N HEMOGLOBIN (test code = HGB) 10.5 gram/dL 11.5-15.5 L HEMATOCRIT (test code = HCT) 34.5 % 36.0-46.0 L MEAN CELL VOLUME (test code = MCV) 89.6 fL 80-98 N MEAN CELL HGB (test code = MCH) 27.3 picogram 27.0-33.0 N MEAN CELL HGB CONCETRATION (test code = MCHC) 30.4 gram/dL 33.0-36. 0 L RED CELL DISTRIBUTION WIDTH (test code = RDW) 14.2 % 11.6-16. 2 N PLATELET COUNT (test code = PLT) 321 K/mm3 150-450 N MEAN PLATELET VOLUME (test code = MPV) 9.8 fL 6.7-11.0 N SPECIMEN CLOTTED; RECOLLECT REQUESTED V.[id number].TS1 [id number] METABOLIC [id number] 17:19:00* Test Item Value Reference Range Interpretation Comments SODIUM (test code = NA) 137 mmol/L 136-145 N POTASSIUM (test code = K) 4.3 mmol/L 3.5-5.1 N CHLORIDE (test code = CL) 102.0 mmol/L 98-107 N CARBON DIOXIDE (test code = CO2) 25.0 mmol/L 21-32 N ANION GAP (test code = GAP) 14.3 10-20 N GLUCOSE (test code = GLU) 103 mg/dL 74-106 N BLOOD UREA NITROGEN (test code = BUN) 31 mg/dL 7-18 H GLOMERULAR FILTRATION RATE (test code = GFR) 48 mL/min >=60 Estimated GFR by using Modified MDRD formula.Chronic kidney disease is defined as either kidney damageor GFR <60 mL/min/1.73 m2 for >3 months. CREATININE (test code = CREAT) 1.10 mg/dL 0.55-1.02 H Note change in reference range due to change in reagent. BUN/CREATININE RATIO (test code = BUN/CREA) 28.2 10-20 H CALCIUM (test code = CA) 8.6 mg/dL 8.5-10.1 N HEPATIC FUNCTION [id number] 17:19:00* Test Item Value Reference Range Interpretation Comments TOTAL PROTEIN (test code = PROT) 7.0 gram/dL 6.4-8.2 N ALBUMIN (test code = ALB) 3.6 g/dL 3.4-5.0 N GLOBULIN (test code = GLOB) 3.4 gram/dL 2.7-4.2 N ALBUMIN/GLOBULIN RATIO (test code = A/G) 1.1 0.75-1.50 N BILIRUBIN TOTAL (test code = BILT) 0.30 mg/dL 0.0-1.0 N BILIRUBIN DIRECT (test code = BILD) < 0.05 mg/dL 0.0-0.20 N SGOT/AST (test code = AST) 23 IUnit/L 15-37 N SGPT/ALT (test code = ALT) 30 IUnit/L 12-78 N ALKALINE PHOSPHATASE TOTAL (test code = ALKP) 134 IUnit/L 45-117 H Note change in reference range due to change in reagent. BASIC METABOLIC [id number] 17:10:00* Test Item Value Reference Range Interpretation Comments SODIUM (test code = NA) 137 mmol/L 136-145 N POTASSIUM (test code = K) 4.3 mmol/L 3.5-5.1 N CHLORIDE (test code = CL) 102.0 mmol/L 98-107 N CARBON DIOXIDE (test code = CO2) mmol/L 21-32 ANION GAP (test code = GAP) 10-20 GLUCOSE (test code = GLU) mg/dL 74-106 BLOOD UREA NITROGEN (test code = BUN) mg/dL 7-18 GLOMERULAR FILTRATION RATE (test code = GFR) mL/min >=60 CREATININE (test code = CREAT) mg/dL 0.55-1.02 BUN/CREATININE RATIO (test code = BUN/CREA) 10-20 CALCIUM (test code = CA) mg/dL 8.5-10.1 HEPATIC FUNCTION [id number] 17:10:00* Test Item Value Reference Range Interpretation Comments TOTAL PROTEIN (test code = PROT) gram/dL 6.4-8.2 ALBUMIN (test code = ALB) g/dL 3.4-5.0 GLOBULIN (test code = GLOB) gram/dL 2.7-4.2 ALBUMIN/GLOBULIN RATIO (test code = A/G) 0.75-1.50 BILIRUBIN TOTAL (test code = BILT) mg/dL 0.0-1.0 BILIRUBIN DIRECT (test code = BILD) mg/dL 0.0-0.20 SGOT/AST (test code = AST) IUnit/L 15-37 SGPT/ALT (test code = ALT) IUnit/L 12-78 ALKALINE PHOSPHATASE TOTAL (test code = ALKP) IUnit/L 45-117 - CT ABD PELVIS [id number] 16:28:00 Name: [facility] : 1940 Age/S: 78 / F [address] Unit #: [id number] Loc: [place] [address] Phys: FADIA GIL MD Acct: [id number] Dis Date: Status: REG ER PHONE #: [phone] Exam Date: 10/21/2018 1605 FAX #: [phone] Reason: fall, pain EXAMS: CPT CODE: [id number] CT ABD PELVIS W/CONT 55941 TECHNIQUE: - CT CHEST W/CONTRAST, - CT ABD PELVIS W/CONT . This exam was performed using one or more of the following dose reduction techniques: Automated exposure control, adjustment of the mA and/ or kV according to patient size or use of iterative reconstruction technique. COMPARISON: None provided. HISTORY: 78 years Female fall, pain FINDINGS: CT CHEST: Lungs: No pulmonary nodules or irregular mass. Lungs are normal in volume. Emphysema. Scattered atelectasis bilaterally. No bronchiectasis or other significant findings. Mediastinum and Clark: No significant lymphadenopathy. No mediastinal or hilar mass. Pleura: No calcifications, effusion, thickening, or pneumothorax. Cardiovascular: Age appropriate. No significant abnormalities. Chest wall and bony structures: No abnormalities. CT ABDOMEN: Liver: Fatty liver. No focal lesions. PAGE 1 Signed Report (CONTINUED) Name: [facility] : 1940 Age/S: 78 / F [address] [facility] Unit #: [id number] Loc: [place] [address] Phys: FADIA GIL MD Acct: [id number] Dis Date: Status: REG ER PHONE #: [phone] Exam Date: 10/21/2018 1600 FAX #: [phone] Reason: fall, pain EXAMS: CPT CODE: [id number] ABD PELVIS W/CONT 76078 < Continued> Gallbladder and biliary ducts: Cholecystectomy. No intra-or extrahepatic biliary ductal dilatation. Spleen: Normal in size and density. No focal lesions. Adrenals: No adrenal nodules or enlargement. Pancreas: No focal lesion, calcifications, pancreatic duct dilatation, or peripancreatic fluid collections. Right kidney: Normal in position and size. No stones. No hydronephrosis. No focal lesions. Left kidney: Normal in position and size. No stones. No hydronephrosis. No focal lesions. GI structures: No small or large bowel dilatation. No small or large bowel wall thickening. Retroperitoneum and mesentery: No significant lymphadenopathy. No free fluid. No free air. No mesenteric abnormalities. No retroperitoneal abnormality. Abdominal wall: No abdominal wall hernia. Vascular structures: Age appropriate. No aneurysm. Osseous structures: Age appropriate. Right hip fixation device with artifact. Old right inferior pubic rami fracture. Likely old superior pubic rami fracture bilaterally. Soft tissues and musculoskeletal structures: No significant findings. CT PELVIS: The urinary bladder is partially distended and appears unremarkable from this exam. No abnormalities in pelvic viscera. PAGE 2 Signed Report (CONTINUED) Name: [facility] : 1940 Age/S: 78 / F [address] [facility] Unit #: [id number] Loc: [place] [address] Phys: FADIA GIL MD Acct: [id number] Dis Date: Status: REG ER PHONE #: [phone] Exam Date: 10/21/2018 1603 FAX #: [phone] Reason: fall, pain EXAMS: CPT CODE: [id number] CT ABD PELVIS W/CONT 49971 <Continued> No significant lymphadenopathy. No free fluid. No inflammatory changes. No inguinal abnormalities. IMPRESSION: Impression CT chest: Emphysema. Scattered atelectasis bilaterally. Impression CT abdomen and pelvis: Fatty liver. Cholecystectomy. Right hip fixation device with artifact. Old right inferior pubic rami fracture. Likely old superior pubic rami fracture bilaterally. at 1628 Reported and signed by: Bailey Thrasher M.D. CC: David Cardenas DO; FADIA GIL MD Technologist:Birdie Fine RT(R),CT; CTDI: DLP: Trnscb Date/Time: 10/21/2018 (1628) t.[email or web address] Orig Print D/T: S: 10/21/2018 (6753) PAGE 3 Signed Report - CT CHEST W/[id number] 16:28:00 Name: [facility] : 1940 Age/S: 78 / F [address] Unit #: [id number] Loc: [place] [address] Phys: FADIA GIL MD Acct: [id number] Dis Date: Status: REG ER PHONE #: [phone] Exam Date: 10/21/2018 1601 FAX #: [phone] Reason: fall, pain EXAMS: CPT CODE: [id number] CT CHEST W/CONTRAST 86833 TECHNIQUE: - CT CHEST W/CONTRAST, - CT ABD PELVIS W/CONT . This exam was performed using one or more of the following dose reduction techniques: Automated exposure control, adjustment of the mA and/ or kV according to patient size or use of iterative reconstruction technique. COMPARISON: None provided. HISTORY: 78 years Female fall, pain FINDINGS: CT CHEST: Lungs: No pulmonary nodules or irregular mass. Lungs are normal in volume. Emphysema. Scattered atelectasis bilaterally. No bronchiectasis or other significant findings. Mediastinum and Clark: No significant lymphadenopathy. No mediastinal or hilar mass. Pleura: No calcifications, effusion, thickening, or pneumothorax. Cardiovascular: Age appropriate. No significant abnormalities. Chest wall and bony structures: No abnormalities. CT ABDOMEN: Liver: Fatty liver. No focal lesions. PAGE 1 Signed Report (CONTINUED) Name: [facility] : 1940 Age/S: 78 / F [address] Unit #: [id number] Loc: [place] [address] Phys: FADIA GIL MD Acct: [id number] Dis Date: Status: REG ER PHONE #: [phone] Exam Date: 10/21/2018 1608 FAX #: [phone] Reason: fall, pain EXAMS: CPT CODE: [id number] CHEST W/CONTRAST 86991 < Continued> Gallbladder and biliary ducts: Cholecystectomy. No intra-or extrahepatic biliary ductal dilatation. Spleen: Normal in size and density. No focal lesions. Adrenals: No adrenal nodules or enlargement. Pancreas: No focal lesion, calcifications, pancreatic duct dilatation, or peripancreatic fluid collections. Right kidney: Normal in position and size. No stones. No hydronephrosis. No focal lesions. Left kidney: Normal in position and size. No stones. No hydronephrosis. No focal lesions. GI structures: No small or large bowel dilatation. No small or large bowel wall thickening. Retroperitoneum and mesentery: No significant lymphadenopathy. No free fluid. No free air. No mesenteric abnormalities. No retroperitoneal abnormality. Abdominal wall: No abdominal wall hernia. Vascular structures: Age appropriate. No aneurysm. Osseous structures: Age appropriate. Right hip fixation device with artifact. Old right inferior pubic rami fracture. Likely old superior pubic rami fracture bilaterally. Soft tissues and musculoskeletal structures: No significant findings. CT PELVIS: The urinary bladder is partially distended and appears unremarkable from this exam. No abnormalities in pelvic viscera. PAGE 2 Signed Report (CONTINUED) Name: [facility] : 1940 Age/S: 78 / F [address] [facility] Unit #: [id number] Loc: [place] [address] Phys: FADIA GIL MD Acct: [id number] Dis Date: Status: REG ER PHONE #: [phone] Exam Date: 10/21/2018 1603 FAX #: [phone] Reason: fall, pain EXAMS: CPT CODE: [id number] CT CHEST W/CONTRAST 50047 <Continued> No significant lymphadenopathy. No free fluid. No inflammatory changes. No inguinal abnormalities. IMPRESSION: Impression CT chest: Emphysema. Scattered atelectasis bilaterally. Impression CT abdomen and pelvis: Fatty liver. Cholecystectomy. Right hip fixation device with artifact. Old right inferior pubic rami fracture. Likely old superior pubic rami fracture bilaterally. at 1628 Reported and signed by: Bailey Thrasher M.D. CC: David Cardenas DO; FADIA GIL MD Technologist:Birdie Fine RT(R),CT; CTDI: DLP: Trnscb Date/Time: 10/21/2018 (1628) Jaskaran Orig Print D/T: S: 10/21/2018 (1701) PAGE 3 Signed Report - CT HEAD/BRAIN W/O [id number] 15:54:00 Name: [facility] : 1940 Age/S: 78 / F [place] Unit #: [id number] Loc: [place] [address] Phys: FADIA GIL MD Acct: [id number] Dis Date: Status: REG ER PHONE #: [phone] Exam Date: 10/21/2018 1540 FAX #: [phone] Reason: HEADACHE EXAMS: CPT CODE: [id number] CT HEAD/BRAIN W/O CONT 73084 TECHNIQUE: - CT C-SPINE W/O CONTRAST, - CT HEAD/BRAIN W/O CONT . This exam was performed using one or more of the following dose reduction techniques: Automated exposure control, adjustment of the mA and/ or kV according to patient size or use of iterative reconstruction technique. COMPARISON: CT brain 09/21/2018 HISTORY: 78 years Female Neck Pain FINDINGS: CT BRAIN: Supra tentorial compartment and Posterior fossa: No hemorrhage. No intra-axial mass. No midline shift. Volume loss and small vessel white matter ischemic changes. Extra-axial structures: No hematoma, fluid collection, or mass. Ventricles and Basal Cisterns: No hydrocep halus. Basal cisterns are normal. Visualized Orbits: No abn ormalities. Visualized Osseous structures: Within normal limits. Visualized paranasal Sinuses: Within normal limits. Other: None. FINDINGS: CT C_SPINE: Bones: No acute fractures. No suspicious focal lesion. Spina bi fida occulta C1. PAGE 1 Signed Report (CONTINUED) Name: [facility] : 1940 Age/S: 78 / F [place] Unit #: [id number] Loc: [place] [address] Phys: FADIA GIL MD Acct: [id number] Dis Date: Status: REG ER PHONE #: [phone] Exam Date: 10/21/2018 1540 FAX #: [phone] Reason: HEADACHE EXAMS: CPT CODE: [id number] CT HEAD/BRAIN W/O CONT 79475 < Continued> Alignment: No subluxation. Soft tissues: No abnormalities. Prevertebral soft tissues, perivertebral soft tissues are normal. Intervertebral discs: Mild spondylosis multiple levels of the cervical spine. Other: Heterogeneous appearance of the thyroid gland. IMPRESSION CT BRAIN AND C-SPINE: CT BRAIN: No acute hemorrhage. Volume loss and small vessel white matter ischemic change. CT C- SPINE: No acute fractures cervical spine. Mild spondylosis multiple levels. at 1554 Reported and signed by: Bailey Thrasher M.D. CC: David Cardenas DO; FADIA GIL MD Technologist:Birdie Fine RT(R),CT; CTDI: DLP: Trnscb Date/Time: 10/21/2018 (2981) [email or web address] Orig Print D/T: S: 10/21/2018 (9087) PAGE 2 Signed Report - CT C-SPINE W/O [id number] 15:54:00 Name: [facility] : 1940 Age/S: 78 / F [address] [facility] Unit #: [id number] Loc: [place] [address] Phys: FADIA GIL MD Acct: [id number] Dis Date: Status: REG ER PHONE #: [phone] Exam Date: 10/21/2018 1540 FAX #: [phone] Reason: Neck Pain EXAMS: CPT CODE: [id number] CT C-SPINE W/O CONTRAST 07171 TECHNIQUE: - CT C-SPINE W/O CONTRAST, - CT HEAD/BRAIN W/O CONT . This exam was performed using one or more of the following dose reduction techniques: Automated exposure control, adjustment of the mA and/ or kV according to patient size or use of iterative reconstruction technique. COMPARISON: CT brain 09/21/2018 HISTORY: 78 years Female Neck Pain FINDINGS: CT BRAIN: Supra tentorial compartment and Posterior fossa: No hemorrhage. No intra-axial mass. No midline shift. Volume loss and small vessel white matter ischemic changes. Extra-axial structures: No hematoma, fluid collection, or mass. Ventricles and Basal Cisterns: No hydrocep halus. Basal cisterns are normal. Visualized Orbits: No abn ormalities. Visualized Osseous structures: Within normal limits. Visualized paranasal Sinuses: Within normal limits. Other: None. FINDINGS: CT C_SPINE: Bones: No acute fractures. No suspicious focal lesion. Spina bi fida occulta C1. PAGE 1 Signed Report (CONTINUED) Name: [facility] : 1940 Age/S: 78 / F [address] Unit #: [id number] Loc: [place] [address] Phys: FADIA GIL MD Acct: [id number] Dis Date: Status: REG ER PHONE #: [phone] Exam Date: 10/21/2018 1540 FAX #: [phone] Reason: Neck Pain EXAMS: CPT CODE: [id number] CT C-SPINE W/O CONTRAST 38284 < Continued> Alignment: No subluxation. Soft tissues: No abnormalities. Prevertebral soft tissues, perivertebral soft tissues are normal. Intervertebral discs: Mild spondylosis multiple levels of the cervical spine. Other: Heterogeneous appearance of the thyroid gland. IMPRESSION CT BRAIN AND C-SPINE: CT BRAIN: No acute hemorrhage. Volume loss and small vessel white matter ischemic change. CT C- SPINE: No acute fractures cervical spine. Mild spondylosis multiple levels. at 1554 Reported and signed by: Bailey Thrasher M.D. CC: David Cradenas DO; FADIA GIL MD Technologist:Birdie Fine RT(R),CT; CTDI: DLP: Trnscb Date/Time: 10/21/2018 (7641) [email or web address] Orig Print D/T: S: 10/21/2018 (7642) PAGE 2 Signed Report - XR CHEST 1 [id number] 15:18:00 FAX: David Elaine DO [phone] [place]: B St: REG FAX: FADIA GIL MD Name: [facility] : 1940 Age/S: 78/F [address] Unit #: [id number] Loc: [place] [address] Phys: FADIA GIL MD Acct: [id number] Dis Date: Status: REG ER PHONE #: [phone] Exam Date: 10/21/2018 1512 FAX #: [phone] Reason: CHEST PAIN EXAMS: CPT CODE: [id number] XR CHEST 1 V 05012 TECHNIQUE - XR CHEST 1 V . COMPARISON: Chest x-ray 09/01/2018 HISTORY: 78 years Female CHEST PAIN FINDINGS: Lungs: 1 cm density left mid lung field versus overlapping shadow. Follow-up advised. Not well seen on the old study study 09/01/2018. Lungs are normal in volume. M ediastinum and clark: No enlargement or other mass. Cardiovascular structures: No cardiomegaly. No abnormalities in vascular structures. Pleura/CP angles: Clear. No pneumothorax. Bones: No o sseous abnormalities. Scoliosis. Soft tissues: No abnormalities. Tubes and lines: None. Other: None. IMPRESSION: 1 cm density left mid lung field versus overlapping shadow. Follow-up advised. Not well seen on the old study study 09/01/2018. at 1513 Reported and signed by: Bailey Thrasher M.D. PAGE 1 Signed Report (CONTINUED) FAX: David Elaine [phone] [place]: St: REG FAX: FAIDA GIL MD Name: CHIQUI HAIDER [facility] : 1940 Age/S: 78/F [address] Unit #: [id number] Loc: [place] [address] Phys: FADIA GIL MD Acct: [id number] Dis Date: Status: REG ER PHONE #: [phone] Exam Date: 10/21/2018 1512 FAX #: [phone] Reason: CHEST PAIN EXAMS: CPT CODE: [id number] XR CHEST 1 V 02070 <Continued> CC: David Cardenas DO; FADIA GIL MD Technologist: RT JULIO(R) Trnscrd Date/Time/By: 10/21/2018 (633) : By: Jaskaran Orig Print D/T: S: 10/21/2018 (4504) PAGE 2 Signed Report - CT HEAD/BRAIN W/O [id number] 16:31:00 Name: CHIQUI HAIDER [facility] : 1940 Age/S: 78 / F [address] Unit #: [id number] Loc: [place] [address] Phys: Karol Hernandez MD Acct: [id number] Dis Date: Status: REG ER PHONE #: [phone] Exam Date: 09/21/2018 1559 FAX #: [phone] Reason: fall, contusion to left forehead EXAMS: CPT CODE: [id number] CT HEAD/BRAIN W/O CONT 30861 EXAM: CT of the head without contrast; INFORMATION: Status post fall; contusion to left 4 head; TECHNIQUE AND FINDINGS: CT dose reduction protocol; 2.5 mm axial scans. There is no evidence of intra or extra-axial hemorrhage, mass lesions or midline shift. There are periventricular and deep white matter hypodensities; otherwise, unremarkable barry/white matter differentiation. Ventricles are symmetric and are slightly prominent; sulci and basilar cisterns are intact. The calvarium is intact. Paranasal sinuses and mastoid air cells are well aerated. There is a small left frontal scalp hematoma. IMPRESSION: 1. No evidence of intracranial hemorrhage or acute territorial infarction. 2. No evidence of skull fracture. 3. No significant change compared with a study from August 25, 2018, showing chronic ischemic white matter sanders es. at 1631 Rep orted and signed by: Last Pacheco M.D. CC: David Cardenas DO; Karol eHrnandez MD Technologist:Dawna Becerra RT(R)(CT) CTDI: DLP: Trnscb Date/Time: 09/21/2018 (1630) Shavon.GRW Orig Print D/T: S: 09/21/2018 (3604) CTDI: DLP: PAGE 1 Signed Report - XR HAND 3 + V [id number] 16:16:00 FAX: David Elaine DO [phone] [place]: St: REG FAX: Karol Barreto [phone] Name: CHIQUI HAIDER [facility] : 1940 Age/S: 78/F [address] [facility] Unit #: [id number] Loc: [place] [address] Phys: Karol Hernandez MD Acct: [id number] Dis Date: Status: REG ER PHONE #: [phone] Exam Date: 09/21/2018 1552 FAX #: [phone] Reason: fall, ttp wrist EXAMS: CPT CODE: [id number] XR HAND 3 + [place] [address] EXAM: Left hand, 3 views and left wrist, 3 views; INFORMATION: Status post fall, pain; FINDINGS: Imaged bones are intact; no evidence of fracture or dislocation. Diffuse osteoporosis. Advanced degenerative changes of the 1st carpometacarpal joint and m oderate degenerative changes of interphalangeal joints. Periarticular soft tissues are unremarkable; no radiopaque foreign bodies. I MPRESSION: 1. No evidence of acute osseous trauma. 2. Osteopor osis. 3. 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 at 1616 Reported and signed by: Last Pacheco M.D. CC: David Cardenas DO; Karol Hernandez MD Techno logist: Nirali Abdi RT(R) Trnscrd Date/Time /By: 09/21/2018 (7442) : By: Shavon.GRW Orig Print D/T: S: 09/21/2018 ( 9051) PAGE 1 Signed Report - XR WRIST 3 + V [id number] 16:16:00 FAX: David Elaine DO [phone] [place]: St: REG FAX: Karol Barreto [phone] Name: CHIQUI HAIDER [facility] : 1940 Age/S: 78/F [address] [facility] Unit #: [id number] Loc: [place] [address] Phys: Karol Hernandez MD Acct: [id number] Dis Date: Status: REG ER PHONE #: [phone] Exam Date: 09/21/2018 1552 FAX #: [phone] Reason: fall, ttp wrist EXAMS: CPT CODE: [id number] XR WRIST 3 + V LT 11334 EXAM: Left hand, 3 views and left wrist, 3 views; INFORMATION: Status post fall, pain; FINDINGS: Imaged bones are intact; no evidence of fracture or dislocation. Diffuse osteoporosis. Advanced degenerative changes of the 1st carpometacarpal joint and m oderate degenerative changes of interphalangeal joints. Periarticular soft tissues are unremarkable; no radiopaque foreign bodies. I MPRESSION: 1. No evidence of acute osseous trauma. 2. Osteopor osis. 3. 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 at 1616 Reported and signed by: Last Pacheco M.D. CC: David Cardenas DO; Karol Hernandez MD Techno logist: Nirali Abdi RT(R) Trnscrd Date/Time /By: 09/21/2018 (9774) : By: IanGRW Orig Print D/T: S: 09/21/2018 ( 1454) PAGE 1 Signed Report - XR FEMUR MIN 2 VWS [id number] 16:12:00 FAX: David Elaine DO [phone] [place]: St: REG FAX: Karol Barreto [phone] Name: CHIQUI HAIDER [facility] : 1940 Age/S: 78/F [address] Unit #: [id number] Loc: [place] [address] Phys: Karol Hernandez MD Acct: [id number] Dis Date: Status: REG ER PHONE #: [phone] Exam Date: 09/21/2018 1552 FAX #: [phone] Reason: fall, pain distal thigh EXAMS: CPT CODE: [id number] XR FEMUR MIN [address] [place] [address] EXAM: Left femur, 4 views and left knee, 3 views; INFORMATION: Status post fall; distal thigh and knee pain; FINDING S: Imaged bones are intact; no evidence of fracture or dislocation. There is moderate narrowing of the medial compartment of the joint space. Periarticular soft tissues are unremarkable. No radiopaque foreign b odies. IMPRESSION: 1. No evidence of acute osseous trau ma. 2. 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 at 1612 Reported and signed by: Last Pacheco M.D. CC: David Cardenas DO; Kamilah Hernandez MD Technologist: Nirali Patton RT(R) Trnscrd Date/Time/By: 09/21/2018 (3281) : By: IanGRW Orig Print D/T: S: 09/21/2018 (6154) PAGE 1 Signed Report - XR KNEE 3 V [id number] 16:12:00 FAX: David Elaine DO [phone] [place]: St: REG FAX: Karol Barreto [phone] Name: CHIQUI HAIDER [facility] : 1940 Age/S: 78/F [address] [facility] Unit #: [id number] Loc: [place] [address] Phys: Karol Hernandez MD Acct: [id number] Dis Date: Status: REG ER PHONE #: [phone] Exam Date: 09/21/2018 [facility] FAX #: [phone] Reason: fall, bruising to ant knee EXAMS: CPT CODE: [id number] XR KNEE 3 [place] [address] EXAM: Left femur, 4 views and left knee, 3 views; INFORMATION: Status post fall; distal thigh and knee pain; FINDINGS: Imaged bones are intact; no evidence of fracture or dislocation. There is moderate narrowing of the medial compartment of the joint space. Periarticular soft tissues are unremarkable. No radiopaque foreign bodies. IMPRESSION: 1. No evidence of acute osseous trauma. 2. 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 at 1612 Reported and signed by: Last Pacheco M.D. CC: David Cardenas DO; Kamilah Hernandez MD Technologist: Nirali Patton RT(R) Trnscrd Date/Time/By: 09/21/2018 (4379) : By: IanGRW Orig Print D/T: S: 09/21/2018 (3202) PAGE 1 Signed Report CBC W/AUTO [id number] 07:00:00* Test Item Value Reference Range Interpretation Comments WHITE BLOOD CELL (test code = WBC) 9.5 K/mm3 4.5-12.5 N RED BLOOD CELL (test code = RBC) 3.63 mill/mm3 3.7-5.2 L HEMOGLOBIN (test code = HGB) 9.7 gram/dL 11.5-15.5 L HEMATOCRIT (test code = HCT) 32.6 % 36.0-46.0 L MEAN CELL VOLUME (test code = MCV) 89.8 fL 80-98 N MEAN CELL HGB (test code = MCH) 26.7 picogram 27.0-33.0 L MEAN CELL HGB CONCETRATION (test code = MCHC) 29.8 gram/dL 33.0-36. 0 L RED CELL DISTRIBUTION WIDTH (test code = RDW) 14.0 % 11.6-16. 2 N RED CELL DISTRIBUTION WIDTH SD (test code = RDW-SD) 45.6 fL 37 .0-51.0 N PLATELET COUNT (test code = PLT) 428 K/mm3 150-450 N MEAN PLATELET VOLUME (test code = MPV) 9.8 fL 6.7-11.0 N NEUTROPHIL % (test code = NT%) 68.2 % 39.0-69.0 N IMMATURE GRANULOCYTE % (test code = IG%) 0.5 % 0.0-5.0 N LYMPHOCYTE % (test code = LY%) 17.1 % 25.0-55.0 L MONOCYTE % (test code = MO%) 10.3 % 0.0-10.0 H EOSINOPHIL % (test code = EO%) 3.4 % 0.0-5.0 N BASOPHIL % (test code = BA%) 0.5 % 0.0-1.0 N NUCLEATED RBC % (test code = NRBC%) 0.0 % 0-0 N NEUTROPHIL # (test code = NT#) 6.44 K/mm3 1.8-7.7 N IMMATURE GRANULOCYTE # (test code = IG#) 0.05 x10 3/uL 0-0.03 H LYMPHOCYTE # (test code = LY#) 1.62 K/mm3 1.0-5.0 N MONOCYTE # (test code = MO#) 0.97 K/mm3 0-0.8 H EOSINOPHIL # (test code = EO#) 0.32 K/mm3 0.0-0.5 N BASOPHIL # (test code = BA#) 0.05 K/mm3 0.0-0.2 N NUCLEATED RBC # (test code = NRBC#) 0.00 K/mm3 0.0-0.1 N MANUAL DIFF REQUIRED (test code = MDIFF) NO, ONLY SCAN NEEDED DIFFERENTIAL [id number] 07:00:00* Test Item Value Reference Range Interpretation Comments STAIN ACCEPTABILITY (test code = STN ACCEPTABLE) STAIN ACCEPTABLE ANISOCYTOSIS (test code = ANISO) 1+ MICROCYTOSIS (test code = MICR) 1+ PLATELET ESTIMATE (test code = PLTEST) ADEQUATE PLATELET MORPHOLOGY (test code = PLTMORPH) NORMAL CBC W/AUTO [id number] 06:01:00* Test Item Value Reference Range Interpretation Comments WHITE BLOOD CELL (test code = WBC) 9.5 K/mm3 4.5-12.5 N RED BLOOD CELL (test code = RBC) 3.63 mill/mm3 3.7-5.2 L HEMOGLOBIN (test code = HGB) 9.7 gram/dL 11.5-15.5 L HEMATOCRIT (test code = HCT) 32.6 % 36.0-46.0 L MEAN CELL VOLUME (test code = MCV) 89.8 fL 80-98 N MEAN CELL HGB (test code = MCH) 26.7 picogram 27.0-33.0 L MEAN CELL HGB CONCETRATION (test code = MCHC) 29.8 gram/dL 33.0-36. 0 L RED CELL DISTRIBUTION WIDTH (test code = RDW) 14.0 % 11.6-16. 2 N RED CELL DISTRIBUTION WIDTH SD (test code = RDW-SD) 45.6 fL 37 .0-51.0 N PLATELET COUNT (test code = PLT) 428 K/mm3 150-450 N MEAN PLATELET VOLUME (test code = MPV) 9.8 fL 6.7-11.0 N NEUTROPHIL % (test code = NT%) 68.2 % 39.0-69.0 N IMMATURE GRANULOCYTE % (test code = IG%) 0.5 % 0.0-5.0 N LYMPHOCYTE % (test code = LY%) 17.1 % 25.0-55.0 L MONOCYTE % (test code = MO%) 10.3 % 0.0-10.0 H EOSINOPHIL % (test code = EO%) 3.4 % 0.0-5.0 N BASOPHIL % (test code = BA%) 0.5 % 0.0-1.0 N NUCLEATED RBC % (test code = NRBC%) 0.0 % 0-0 N NEUTROPHIL # (test code = NT#) 6.44 K/mm3 1.8-7.7 N IMMATURE GRANULOCYTE # (test code = IG#) 0.05 x10 3/uL 0-0.03 H LYMPHOCYTE # (test code = LY#) 1.62 K/mm3 1.0-5.0 N MONOCYTE # (test code = MO#) 0.97 K/mm3 0-0.8 H EOSINOPHIL # (test code = EO#) 0.32 K/mm3 0.0-0.5 N BASOPHIL # (test code = BA#) 0.05 K/mm3 0.0-0.2 N NUCLEATED RBC # (test code = NRBC#) 0.00 K/mm3 0.0-0.1 N MANUAL DIFF REQUIRED (test code = MDIFF) NO, ONLY SCAN NEEDED DIFFERENTIAL [id number] 06:01:00* Test Item Value Reference Range Interpretation Comments STAIN ACCEPTABILITY (test code = STN ACCEPTABLE) CABOT RINGS (test code = CAB) MORPHOLOGY COMMENT (test code = MOC) PLATELET ESTIMATE (test code = PLTEST) PLATELET MORPHOLOGY (test code = PLTMORPH) CBC W/AUTO [id number] 06:01:00* Test Item Value Reference Range Interpretation Comments WHITE BLOOD CELL (test code = WBC) 9.5 K/mm3 4.5-12.5 N RED BLOOD CELL (test code = RBC) 3.63 mill/mm3 3.7-5.2 L HEMOGLOBIN (test code = HGB) 9.7 gram/dL 11.5-15.5 L HEMATOCRIT (test code = HCT) 32.6 % 36.0-46.0 L MEAN CELL VOLUME (test code = MCV) 89.8 fL 80-98 N MEAN CELL HGB (test code = MCH) 26.7 picogram 27.0-33.0 L MEAN CELL HGB CONCETRATION (test code = MCHC) 29.8 gram/dL 33.0-36. 0 L RED CELL DISTRIBUTION WIDTH (test code = RDW) 14.0 % 11.6-16. 2 N RED CELL DISTRIBUTION WIDTH SD (test code = RDW-SD) 45.6 fL 37 .0-51.0 N PLATELET COUNT (test code = PLT) 428 K/mm3 150-450 N MEAN PLATELET VOLUME (test code = MPV) 9.8 fL 6.7-11.0 N NEUTROPHIL % (test code = NT%) 68.2 % 39.0-69.0 N IMMATURE GRANULOCYTE % (test code = IG%) 0.5 % 0.0-5.0 N LYMPHOCYTE % (test code = LY%) 17.1 % 25.0-55.0 L MONOCYTE % (test code = MO%) 10.3 % 0.0-10.0 H EOSINOPHIL % (test code = EO%) 3.4 % 0.0-5.0 N BASOPHIL % (test code = BA%) 0.5 % 0.0-1.0 N NUCLEATED RBC % (test code = NRBC%) 0.0 % 0-0 N NEUTROPHIL # (test code = NT#) 6.44 K/mm3 1.8-7.7 N IMMATURE GRANULOCYTE # (test code = IG#) 0.05 x10 3/uL 0-0.03 H LYMPHOCYTE # (test code = LY#) 1.62 K/mm3 1.0-5.0 N MONOCYTE # (test code = MO#) 0.97 K/mm3 0-0.8 H EOSINOPHIL # (test code = EO#) 0.32 K/mm3 0.0-0.5 N BASOPHIL # (test code = BA#) 0.05 K/mm3 0.0-0.2 N NUCLEATED RBC # (test code = NRBC#) 0.00 K/mm3 0.0-0.1 N MANUAL DIFF REQUIRED (test code = MDIFF) NO, ONLY SCAN NEEDED DIFFERENTIAL [id number] 06:01:00* Test Item Value Reference Range Interpretation Comments STAIN ACCEPTABILITY (test code = STN ACCEPTABLE) CABOT RINGS (test code = CAB) MORPHOLOGY COMMENT (test code = MOC) PLATELET ESTIMATE (test code = PLTEST) PLATELET MORPHOLOGY (test code = PLTMORPH) CBC W/AUTO [id number] 06:01:00* Test Item Value Reference Range Interpretation Comments WHITE BLOOD CELL (test code = WBC) 9.5 K/mm3 4.5-12.5 N RED BLOOD CELL (test code = RBC) 3.63 mill/mm3 3.7-5.2 L HEMOGLOBIN (test code = HGB) 9.7 gram/dL 11.5-15.5 L HEMATOCRIT (test code = HCT) 32.6 % 36.0-46.0 L MEAN CELL VOLUME (test code = MCV) 89.8 fL 80-98 N MEAN CELL HGB (test code = MCH) 26.7 picogram 27.0-33.0 L MEAN CELL HGB CONCETRATION (test code = MCHC) 29.8 gram/dL 33.0-36. 0 L RED CELL DISTRIBUTION WIDTH (test code = RDW) 14.0 % 11.6-16. 2 N RED CELL DISTRIBUTION WIDTH SD (test code = RDW-SD) 45.6 fL 37 .0-51.0 N PLATELET COUNT (test code = PLT) 428 K/mm3 150-450 N MEAN PLATELET VOLUME (test code = MPV) 9.8 fL 6.7-11.0 N NEUTROPHIL % (test code = NT%) 68.2 % 39.0-69.0 N IMMATURE GRANULOCYTE % (test code = IG%) 0.5 % 0.0-5.0 N LYMPHOCYTE % (test code = LY%) 17.1 % 25.0-55.0 L MONOCYTE % (test code = MO%) 10.3 % 0.0-10.0 H EOSINOPHIL % (test code = EO%) 3.4 % 0.0-5.0 N BASOPHIL % (test code = BA%) 0.5 % 0.0-1.0 N NUCLEATED RBC % (test code = NRBC%) 0.0 % 0-0 N NEUTROPHIL # (test code = NT#) 6.44 K/mm3 1.8-7.7 N IMMATURE GRANULOCYTE # (test code = IG#) 0.05 x10 3/uL 0-0.03 H LYMPHOCYTE # (test code = LY#) 1.62 K/mm3 1.0-5.0 N MONOCYTE # (test code = MO#) 0.97 K/mm3 0-0.8 H EOSINOPHIL # (test code = EO#) 0.32 K/mm3 0.0-0.5 N BASOPHIL # (test code = BA#) 0.05 K/mm3 0.0-0.2 N NUCLEATED RBC # (test code = NRBC#) 0.00 K/mm3 0.0-0.1 N MANUAL DIFF REQUIRED (test code = MDIFF) NO, ONLY SCAN NEEDED DIFFERENTIAL [id number] 06:01:00* Test Item Value Reference Range Interpretation Comments STAIN ACCEPTABILITY (test code = STN ACCEPTABLE) MORPHOLOGY COMMENT (test code = MOC) PLATELET ESTIMATE (test code = PLTEST) PLATELET MORPHOLOGY (test code = PLTMORPH) CBC W/AUTO [id number] 06:01:00* Test Item Value Reference Range Interpretation Comments WHITE BLOOD CELL (test code = WBC) 9.5 K/mm3 4.5-12.5 N RED BLOOD CELL (test code = RBC) 3.63 mill/mm3 3.7-5.2 L HEMOGLOBIN (test code = HGB) 9.7 gram/dL 11.5-15.5 L HEMATOCRIT (test code = HCT) 32.6 % 36.0-46.0 L MEAN CELL VOLUME (test code = MCV) 89.8 fL 80-98 N MEAN CELL HGB (test code = MCH) 26.7 picogram 27.0-33.0 L MEAN CELL HGB CONCETRATION (test code = MCHC) 29.8 gram/dL 33.0-36. 0 L RED CELL DISTRIBUTION WIDTH (test code = RDW) 14.0 % 11.6-16. 2 N RED CELL DISTRIBUTION WIDTH SD (test code = RDW-SD) 45.6 fL 37 .0-51.0 N PLATELET COUNT (test code = PLT) 428 K/mm3 150-450 N MEAN PLATELET VOLUME (test code = MPV) 9.8 fL 6.7-11.0 N NEUTROPHIL % (test code = NT%) 68.2 % 39.0-69.0 N IMMATURE GRANULOCYTE % (test code = IG%) 0.5 % 0.0-5.0 N LYMPHOCYTE % (test code = LY%) 17.1 % 25.0-55.0 L MONOCYTE % (test code = MO%) 10.3 % 0.0-10.0 H EOSINOPHIL % (test code = EO%) 3.4 % 0.0-5.0 N BASOPHIL % (test code = BA%) 0.5 % 0.0-1.0 N NUCLEATED RBC % (test code = NRBC%) 0.0 % 0-0 N NEUTROPHIL # (test code = NT#) 6.44 K/mm3 1.8-7.7 N IMMATURE GRANULOCYTE # (test code = IG#) 0.05 x10 3/uL 0-0.03 H LYMPHOCYTE # (test code = LY#) 1.62 K/mm3 1.0-5.0 N MONOCYTE # (test code = MO#) 0.97 K/mm3 0-0.8 H EOSINOPHIL # (test code = EO#) 0.32 K/mm3 0.0-0.5 N BASOPHIL # (test code = BA#) 0.05 K/mm3 0.0-0.2 N NUCLEATED RBC # (test code = NRBC#) 0.00 K/mm3 0.0-0.1 N MANUAL DIFF REQUIRED (test code = MDIFF) NO, ONLY SCAN NEEDED DIFFERENTIAL [id number] 06:01:00* Test Item Value Reference Range Interpretation Comments STAIN ACCEPTABILITY (test code = STN ACCEPTABLE) CABOT RINGS (test code = CAB) MORPHOLOGY COMMENT (test code = MOC) PLATELET ESTIMATE (test code = PLTEST) PLATELET MORPHOLOGY (test code = PLTMORPH) - XR CHEST 1 [id number] 09:24:00 FAX: Rasheeda Costa MD [phone] [place]: B : [facility] FAX: David Elaine DO [phone] Name: CHIQUI HAIDER [facility] : 1940 Age/S: 78/F [facility] Unit #: [id number] Loc: [place] [address] [place] [address] Phys: Rasheeda Byers MD Acct: [id number] Dis Date: Status: ADM IN PHONE #: [phone] Exam Date: 09/01/2018832 FAX #: [phone] Reason: sob EXAMS: CPT CODE: [id number] XR CHEST 1 V 04370 HISTORY: Shortness of breath. COMPARISON: August 25, 2018. No acute infiltrates, effusion or congestion is noted. Cardiomegaly. IMPRESSION: No acute infiltrates, effusion or congestion. at 0924 Reported and signed by: Mejia Borjas M.D. CC: Rasheeda Byers MD; David Cardenas DO Technologist: Reshma Martel(R); STUDENT TECHNOLOGIST Trnscrd Date/Time/By: 09/01/2018 (923) : By: [email or web address] Orig Print D/T: S: 09/01/2018 (927) PAGE 1 Signed Report THYROID PROFILE [id number] 06:38:00* Test Item Value Reference Range Interpretation Comments T3 UPTAKE (test code = T3UP) 37.0 % 30.0-40.0 N T4 (THYROXINE) (test code = T4) 12.8 ug/dL 4.5-13.9 N T7 (FREE THYROXINE INDEX) (test code = T7) 4.73 FTI 1.3-5.1 N THYROID STIMULATING HORMONE (test code = TSH) 0.872 uIU/mL 0.36-3.7 4 N TSH REFERENCE RANGES: EUTHYROID: 0.35 - 4.3 mIU/mL HYPO : > 5.5 mIU/mL HYPER : < 0.35 mIU/mL COMPREHENSIVE METABOLIC [id number] 06:32:00* Test Item Value Reference Range Interpretation Comments SODIUM (test code = NA) 141 mmol/L 136-145 N POTASSIUM (test code = K) 3.6 mmol/L 3.5-5.1 N CHLORIDE (test code = CL) 106.0 mmol/L 98-107 N CARBON DIOXIDE (test code = CO2) 28.0 mmol/L 21-32 N ANION GAP (test code = GAP) 10.6 10-20 N GLUCOSE (test code = GLU) 88 mg/dL 74-106 N BLOOD UREA NITROGEN (test code = BUN) 8 mg/dL 7-18 N GLOMERULAR FILTRATION RATE (test code = GFR) > 60 mL/min >=60 Estimated GFR by using Modified MDRD formula.Chronic kidney disease is defined as either kidney damageor GFR <60 mL/min/1.73 m2 for >3 months. CREATININE (test code = CREAT) 0.70 mg/dL 0.55-1.02 N Note change in reference range due to change in reagent. BUN/CREATININE RATIO (test code = BUN/CREA) 11.4 10-20 N TOTAL PROTEIN (test code = PROT) 6.8 gram/dL 6.4-8.2 N ALBUMIN (test code = ALB) 2.9 g/dL 3.4-5.0 L GLOBULIN (test code = GLOB) 3.9 gram/dL 2.7-4.2 N ALBUMIN/GLOBULIN RATIO (test code = A/G) 0.7 0.75-1.50 L CALCIUM (test code = CA) 9.1 mg/dL 8.5-10.1 N BILIRUBIN TOTAL (test code = BILT) 0.20 mg/dL 0.0-1.0 N SGOT/AST (test code = AST) 14 IUnit/L 15-37 L SGPT/ALT (test code = ALT) 15 IUnit/L 12-78 N ALKALINE PHOSPHATASE TOTAL (test code = ALKP) 133 IUnit/L 45-117 H Note change in reference range due to change in reagent. COMPREHENSIVE METABOLIC [id number] 06:23:00* Test Item Value Reference Range Interpretation Comments SODIUM (test code = NA) 141 mmol/L 136-145 N POTASSIUM (test code = K) 3.6 mmol/L 3.5-5.1 N CHLORIDE (test code = CL) 106.0 mmol/L 98-107 N CARBON DIOXIDE (test code = CO2) mmol/L 21-32 ANION GAP (test code = GAP) 10-20 GLUCOSE (test code = GLU) mg/dL 74-106 BLOOD UREA NITROGEN (test code = BUN) mg/dL 7-18 GLOMERULAR FILTRATION RATE (test code = GFR) mL/min >=60 CREATININE (test code = CREAT) mg/dL 0.55-1.02 BUN/CREATININE RATIO (test code = BUN/CREA) 10-20 TOTAL PROTEIN (test code = PROT) gram/dL 6.4-8.2 ALBUMIN (test code = ALB) g/dL 3.4-5.0 GLOBULIN (test code = GLOB) gram/dL 2.7-4.2 ALBUMIN/GLOBULIN RATIO (test code = A/G) 0.75-1.50 CALCIUM (test code = CA) mg/dL 8.5-10.1 BILIRUBIN TOTAL (test code = BILT) mg/dL 0.0-1.0 SGOT/AST (test code = AST) IUnit/L 15-37 SGPT/ALT (test code = ALT) IUnit/L 12-78 ALKALINE PHOSPHATASE TOTAL (test code = ALKP) IUnit/L 45-117 BASIC METABOLIC [id number] 05:10:00* Test Item Value Reference Range Interpretation Comments SODIUM (test code = NA) 141 mmol/L 136-145 N POTASSIUM (test code = K) 4.1 mmol/L 3.5-5.1 N CHLORIDE (test code = CL) 106.0 mmol/L 98-107 N CARBON DIOXIDE (test code = CO2) 26.0 mmol/L 21-32 N ANION GAP (test code = GAP) 13.1 10-20 N GLUCOSE (test code = GLU) 83 mg/dL 74-106 N BLOOD UREA NITROGEN (test code = BUN) 7 mg/dL 7-18 N GLOMERULAR FILTRATION RATE (test code = GFR) > 60 mL/min >=60 Estimated GFR by using Modified MDRD formula.Chronic kidney disease is defined as either kidney damageor GFR <60 mL/min/1.73 m2 for >3 months. CREATININE (test code = CREAT) 0.80 mg/dL 0.55-1.02 N Note change in reference range due to change in reagent. BUN/CREATININE RATIO (test code = BUN/CREA) 8.8 10-20 L CALCIUM (test code = CA) 8.6 mg/dL 8.5-10.1 N BASIC METABOLIC [id number] 04:56:00* Test Item Value Reference Range Interpretation Comments SODIUM (test code = NA) 141 mmol/L 136-145 N POTASSIUM (test code = K) 4.1 mmol/L 3.5-5.1 N CHLORIDE (test code = CL) 106.0 mmol/L 98-107 N CARBON DIOXIDE (test code = CO2) mmol/L 21-32 ANION GAP (test code = GAP) 10-20 GLUCOSE (test code = GLU) mg/dL 74-106 BLOOD UREA NITROGEN (test code = BUN) mg/dL 7-18 GLOMERULAR FILTRATION RATE (test code = GFR) mL/min >=60 CREATININE (test code = CREAT) mg/dL 0.55-1.02 BUN/CREATININE RATIO (test code = BUN/CREA) 10-20 CALCIUM (test code = CA) mg/dL 8.5-10.1 CBC W/AUTO [id number] 04:41:00* Test Item Value Reference Range Interpretation Comments WHITE BLOOD CELL (test code = WBC) 11.5 K/mm3 4.5-12.5 N RED BLOOD CELL (test code = RBC) 3.93 mill/mm3 3.7-5.2 N HEMOGLOBIN (test code = HGB) 10.9 gram/dL 11.5-15.5 L HEMATOCRIT (test code = HCT) 34.8 % 36.0-46.0 L MEAN CELL VOLUME (test code = MCV) 88.5 fL 80-98 N MEAN CELL HGB (test code = MCH) 27.7 picogram 27.0-33.0 N MEAN CELL HGB CONCETRATION (test code = MCHC) 31.3 gram/dL 33.0-36. 0 L RED CELL DISTRIBUTION WIDTH (test code = RDW) 14.0 % 11.6-16. 2 N RED CELL DISTRIBUTION WIDTH SD (test code = RDW-SD) 45.8 fL 37 .0-51.0 N PLATELET COUNT (test code = PLT) 377 K/mm3 150-450 N MEAN PLATELET VOLUME (test code = MPV) 9.4 fL 6.7-11.0 N NEUTROPHIL % (test code = NT%) 61.6 % 39.0-69.0 N IMMATURE GRANULOCYTE % (test code = IG%) 0.3 % 0.0-5.0 N LYMPHOCYTE % (test code = LY%) 17.9 % 25.0-55.0 L MONOCYTE % (test code = MO%) 17.1 % 0.0-10.0 H EOSINOPHIL % (test code = EO%) 2.3 % 0.0-5.0 N BASOPHIL % (test code = BA%) 0.8 % 0.0-1.0 N NUCLEATED RBC % (test code = NRBC%) 0.0 % 0-0 N NEUTROPHIL # (test code = NT#) 7.07 K/mm3 1.8-7.7 N IMMATURE GRANULOCYTE # (test code = IG#) 0.04 x10 3/uL 0-0.03 H LYMPHOCYTE # (test code = LY#) 2.06 K/mm3 1.0-5.0 N MONOCYTE # (test code = MO#) 1.97 K/mm3 0-0.8 H EOSINOPHIL # (test code = EO#) 0.26 K/mm3 0.0-0.5 N BASOPHIL # (test code = BA#) 0.09 K/mm3 0.0-0.2 N NUCLEATED RBC # (test code = NRBC#) 0.00 K/mm3 0.0-0.1 N - CT ABD PELVIS W WO [id number] 19:03:00 Name: CHIQUI HAIDER [facility] : 1940 Age/S: 78 / F [address] [facility] Unit #: [id number] Loc: [place] [address] Phys: Jesus Lorenz MD Acct: [id number] Dis Date: Status: ADM IN PHONE #: [phone] Exam Date: 08/30/2018 8624 FAX #: [phone] Reason: PAIN EXAMS: CPT CODE: [id number] CT ABD PELVIS W WO CONT [id number] HISTORY: Abdominal pain TECHNIQUE: Noncontrast [address] images were acquired through the abdomen/pelvis. Immediate and delayed [address] images were subsequently acquired through the abdomen and pelvis after IV administration of 100 mL of Isovue-370 contrast. Sagittal and coronal reformatted images were generated. Automated exposure control for dose reduction. COMPARISON: 08/28/18 FINDINGS: Cholecystectomy. Liver, pancreas, spleen, adrenal glands, and kidneys are unremarkable. Limited evaluation the GI tract without oral contrast. Stomach, small bowel, and colon are unremarkable. Persistent focal omental infla mmatory stranding anterior to the gastric antrum. No free air or f ree fluid. No lymphadenopathy. Aortoiliac atherosclerotic vascular calcifi cation without aneurysm. Urinary bladder is unremarkable. Hysterec tayo. Trace pelvic free fluid. Lumbar levoscoliosis. Degener ative changes of the spine, sacroiliac joints, and hips. 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 Right proximal femur internal f ixation. IMPRESSION: No significant i nterval change. Persistent focal omental inflammatory stranding anterior to the gastric antrum. No organized fluid collection. No intraperitoneal free air. at 1903 Reported and signed by: Genoveva Mcdaniel D.O. [facility] GE 1 Signed Report (CONTINUED) Name: MELIZACHIQUISAGRARIO BEY [facility] : [birth year] Age/S: 78 / F [address] [facility] Unit #: [id number] Loc: [place] [address] Phys: Jesus Lorenz MD Acct: [id number] Dis Date: Status: ADM IN PHONE #: Exam Date: 08/30/2018 1745 FAX #: [phone] Reason: PAIN EXAMS: CPT CODE: [id number] CT ABD PELVIS W WO C ONT 27468 <Continued> CC: Rasheeda Byers MD; Jesus Lorenz MD; David Cardenas DO Technologist:Lelo Becerra,RT(R),CT CTDI: DLP: Trnscb Date/Time: 08/30/2018 (1902) [email or web address] Orig Print D/T: S: 08/30/2018 (1905) CTDI: DLP: PAGE 2 Signed Report - CT CHEST W/[id number] 18:53:00 Name: CHIQUI HAIDER [facility] : 1940 Age/S: 78 / F [address] Unit #: [id number] Loc: [place] [address] Phys: Jesus Lorenz MD Acct: [id number] Dis Date: Status: ADM IN PHONE #: [phone] Exam Date: 08/30/2018 174 FAX #: [phone] Reason: PAIN EXAMS: CPT CODE: [id number] CT CHEST W/CONTRAST 62842 HISTORY: PAIN TECHNIQUE: [address] images were obtained through the chest before and after IV administration of 100 mL of Isovue- 370 contrast. Automated exposure control for dose reduction. COMPARISON: Chest x-ray 08/25/18 FINDINGS: Lungs: No airspace consolidation. Small right pleural effusion. Central airways are patent. Cardiovascular: Normal heart size. No pericardial effusion. Carotid artery and thoracic aortic vascular calcification. No thoracic aortic aneurysm or dissection. Normal caliber pulmonary arteries. Mediastinum: No lymphadenopathy. Visualized thyroid is unremarkable. Normal esophagus. Included upper abdomen: Please refer to abdominal CT report. Bones and superficial soft tissues: Degenerative changes of the spine. IMPRESSION: Small right pleural effusion. No airspace consolidation. at 1853 Reported and signed by: Genoveva Mcdaniel D.O. CC: Rasheeda Byers MD; Jesus Lorenz MD; David Cardenas DO Technologist:Lelo Becerra,RT(R),CT CTDI: DLP: Trnscb Date/Time: 08/30/2018 (1852) [email or web address] Orig Print D/T: S: 08/30/2018 (1855) CTDI: DLP: PAGE 1 Signed Report - XR ABDOMEN [id number] 17:48:00 FAX: Rasheeda Costa MD [phone] [place]: B St: [facility] FAX: David Elaine DO [phone] Name: CHIQUI HAIDER [facility] : 1940 Age/S: 78/F [address] Unit #: [id number] Loc: [place] [address] [place] [address] Phys: Rasheeda Byers MD Acct: [id number] Dis Date: Status: ADM IN PHONE #: [phone] Exam Date: 08/30/2018 1734 FAX #: [phone] Reason: PAIN EXAMS: CPT CODE: [id number] XR ABDOMEN 2V 22965 HISTORY: PAIN TECHNIQUE Supine and upright AP abdomen x-ray FINDINGS: Nonspecific nonobstructed bowel gas pattern. No free intraperitoneal air. No intra-abdominal mass effect. No abnormal calcifications are observed. Cholecystectomy clips. Lumbar spondylosis and levoscoliosis. Degenerative changes of the sacroiliac joints and hips. IMPRESSION: Nonobstructive bowel gas pattern. No free air. at 1746 Reported and signed by: Genoveva Mcdaniel D.O. CC: Rasheeda Byers MD; David Cardenas echnologist: Thaila Mccall Trnscrd Date /Time/By: 08/30/2018 (3575) : By: [email or web address] Orig Print D/T: S: 019 (8927) PAGE 1 Signed Report CBC W/AUTO [id number] 06:21:00* Test Item Value Reference Range Interpretation Comments WHITE BLOOD CELL (test code = WBC) 7.0 K/mm3 4.5-12.5 N RED BLOOD CELL (test code = RBC) 3.78 mill/mm3 3.7-5.2 N HEMOGLOBIN (test code = HGB) 10.5 gram/dL 11.5-15.5 L HEMATOCRIT (test code = HCT) 33.5 % 36.0-46.0 L MEAN CELL VOLUME (test code = MCV) 88.6 fL 80-98 N MEAN CELL HGB (test code = MCH) 27.8 picogram 27.0-33.0 N MEAN CELL HGB CONCETRATION (test code = MCHC) 31.3 gram/dL 33.0-36. 0 L RED CELL DISTRIBUTION WIDTH (test code = RDW) 14.0 % 11.6-16. 2 N RED CELL DISTRIBUTION WIDTH SD (test code = RDW-SD) 45.6 fL 37 .0-51.0 N PLATELET COUNT (test code = PLT) 400 K/mm3 150-450 N MEAN PLATELET VOLUME (test code = MPV) 10.0 fL 6.7-11.0 N NEUTROPHIL % (test code = NT%) 62.5 % 39.0-69.0 N IMMATURE GRANULOCYTE % (test code = IG%) 0.3 % 0.0-5.0 N LYMPHOCYTE % (test code = LY%) 21.1 % 25.0-55.0 L MONOCYTE % (test code = MO%) 12.6 % 0.0-10.0 H EOSINOPHIL % (test code = EO%) 3.1 % 0.0-5.0 N BASOPHIL % (test code = BA%) 0.4 % 0.0-1.0 N NUCLEATED RBC % (test code = NRBC%) 0.0 % 0-0 N NEUTROPHIL # (test code = NT#) 4.37 K/mm3 1.8-7.7 N IMMATURE GRANULOCYTE # (test code = IG#) 0.02 x10 3/uL 0-0.03 N LYMPHOCYTE # (test code = LY#) 1.48 K/mm3 1.0-5.0 N MONOCYTE # (test code = MO#) 0.88 K/mm3 0-0.8 H EOSINOPHIL # (test code = EO#) 0.22 K/mm3 0.0-0.5 N BASOPHIL # (test code = BA#) 0.03 K/mm3 0.0-0.2 N NUCLEATED RBC # (test code = NRBC#) 0.00 K/mm3 0.0-0.1 N MANUAL DIFF REQUIRED (test code = MDIFF) NO BASIC METABOLIC [id number] 05:48:00* Test Item Value Reference Range Interpretation Comments SODIUM (test code = NA) 144 mmol/L 136-145 N POTASSIUM (test code = K) 3.9 mmol/L 3.5-5.1 N CHLORIDE (test code = CL) 109.0 mmol/L 98-107 H CARBON DIOXIDE (test code = CO2) 28.0 mmol/L 21-32 N ANION GAP (test code = GAP) 10.9 10-20 N GLUCOSE (test code = GLU) 90 mg/dL 74-106 N BLOOD UREA NITROGEN (test code = BUN) 8 mg/dL 7-18 N GLOMERULAR FILTRATION RATE (test code = GFR) > 60 mL/min >=60 Estimated GFR by using Modified MDRD formula.Chronic kidney disease is defined as either kidney damageor GFR <60 mL/min/1.73 m2 for >3 months. CREATININE (test code = CREAT) 0.60 mg/dL 0.55-1.02 N Note change in reference range due to change in reagent. BUN/CREATININE RATIO (test code = BUN/CREA) 13.3 10-20 N CALCIUM (test code = CA) 8.9 mg/dL 8.5-10.1 N BASIC METABOLIC [id number] 05:42:00* Test Item Value Reference Range Interpretation Comments SODIUM (test code = NA) 144 mmol/L 136-145 N POTASSIUM (test code = K) 3.9 mmol/L 3.5-5.1 N CHLORIDE (test code = CL) 109.0 mmol/L 98-107 H CARBON DIOXIDE (test code = CO2) mmol/L 21-32 ANION GAP (test code = GAP) 10-20 GLUCOSE (test code = GLU) mg/dL 74-106 BLOOD UREA NITROGEN (test code = BUN) mg/dL 7-18 GLOMERULAR FILTRATION RATE (test code = GFR) mL/min >=60 CREATININE (test code = CREAT) mg/dL 0.55-1.02 BUN/CREATININE RATIO (test code = BUN/CREA) 10-20 CALCIUM (test code = CA) mg/dL 8.5-10.1 - CT ABD PELVIS [id number] 07:25:00 Name: MELIZACHIQUI SOTERO [facility] : 1940 Age/S: 78 / F [address] y Unit #: [id number] Loc: [place] [address] Phys: Jesus Lorenz MD Acct: [id number] Dis Date: Status: ADM IN PHONE #: [phone] Exam Date: 08/28/2018 0050 FAX #: [phone] Reason: possible perforated ulcer EXAMS: CPT CODE: [id number] CT ABD PELVIS W/CONT 33542 EXAM: CT of the abdomen and pelvis with contrast; INFORMATION: Abdominal pain, perforated ulcer; TECHNIQUE AND FINDINGS: CT dose reduction protocol; 5 mm cuts through the abdomen and pelvis during and after intravenous infusion of contrast material. Similar to the recent study from August 25, 2018 there is thickening of the wall of the gastric antrum and there is significant stranding of omental fat tissue between anterior abdominal wall and the stomach. No evidence of free air and no localized fluid collection in this region. Homogeneous enhancement of the liver; no defines small slightly hypodense splenic lesions; status post cholecystectomy; unremarkable pancreas, adrenal glands and kidneys. No abnormalities of small bowel and colon; no pelvic mass lesions. Lung bases are clear. IMPRESSION: 1. No significant change compared with the recent study from August 25, 2018. 2. Inflammatory changes involving the omentum anterior to the gastric antrum with mild wall thickening of the antrum. These findings are suspicious for a contained perforation of a gastric ulcer without evidence of abscess formation or pneumoperitoneum. at 0725 Rep orted and signed by: Last Pacheco M.D. CC: Rasheeda Byers MD; Jesus Lorenz MD; David Cardenas DO Technologist:BAILEY NORTH C TDI: DLP: Trnscb Date/Time: 08/28/2018 (724) [email or web address] Orig Print D/T: S: 08/28/2018 (0729) CTDI: DLP: PAGE 1 Signed Report - XR ELBOW 2 VIEWS [id number] 10:52:00 FAX: Jacob Costa MD [phone] [place]: St: [facility] FAX: Rasheeda Costa MD [phone] FAX: David Elaine DO [phone] Name: CHIQUI HAIDER [facility] : 1940 Age/S: 78/F [address] Unit #: [id number] Loc: [address] [place] [address] Phys: Jacob Byers MD Acct: [id number] Dis Date: Status: ADM IN ONE #: [phone] Exam Date: 08/27/2018 09 FAX #: [phone] Reason: FALL ON ELBOW EXAMS: CPT CODE: [id number] XR ELBOW [address] [place] [address] HISTORY: Fall and pain. COMPARISON: None available. 2 views of the right elbow: No acute fracture or dislocation. Joint spaces are p reserved. No erosive or destructive changes are noted. Triceps enthesophyt e. Bone mineralization and soft tissues are normal. IMPRES REGGIE: No acute fracture or dislocation. Joint spaces are prese rved. Marginal osteophytes from the medial humeral condyle. Biceps enthe sophyte. at 1052 Reported and signed by: Mejia Borjas M.D. CC: Jacob Byers MD; Rasheeda Byers MD; David Cardenas DO Tech nologist: Christianne Woods RT(R) Trnscrd Date/Ti me/By: 08/27/2018 (4732) : By: [email or web address] Orig Print D/T: S: 08/27/2018 (1215) PAGE 1 Signed Report - CT ABD PELVIS W/[id number] 18:15:00 Name: CHIQUI HAIDER [facility] : 1940 Age/S: 78 / F [address] Unit #: [id number] Loc: [place] [address] Phys: Milton Melissa DO Acct: [id number] Dis Date: Status: REG ER PHONE #: Exam Date: 08/25/20181642 FAX #: Reason: pain EXAMS: CPT CODE: [id number] CT ABD PELVIS W/CONT 15112 REASON FOR EXAM: pain EXAM ORDER DATE: 08/25/2018 12:46 PM Ordering MBeth Renteria: Milton Melissa DO PROCEDURE: - CT ABD PELVIS W/CONT contrast- enhanced axial CT images were acquired through the abdomen/pelvis at 5 mm intervals. Sagittal and coronal reformatted images were generated. Autom ated exposure control was utilized for this reduction. MERE RISON: March 13, 2018. FINDINGS: The visualized lung base s are clear with no evidence of suspicious lung nodules or masses. There i s no evidence of pleural or pericardial effusion. A focus of calcification is seen at the dome of the liver, likely from prior granulomatous infecti on. No focal lesions are seen in the liver. Prior cholecystectomy. Nonspecific small hypodense foci are seen in the spleen, unchanged when compared to the prior study. The adrenals and pancreas appears normal. No dilated bowel loops are seen. There is no evidence of free fluid or air in the abdomen or pelvis. A focus of fat stranding is seen in the mesentery of the right upper quadrant in the gas trohepatic space (series 2 image #34). The adjacent stomach wall shows foc al pooling of the contrast concerning for a ulcer. Symmetric excretion of contrast is seen from both kidneys with no evidence of focal lesions, hydronephrosis, or nephrolithiasis. No retroperitoneal, pelvic, or inguinal adenopathy seen. The urinary bladder appears n ormal. Prior hysterectomy. Extensive degenerative changes are seen in the spine. Internal fixation of the right proximal femur is seen. Prior fractures of the pelvis. PAGE 1 Signed Report (CONTINUED) Name: CHIQUI HAIDER [facility] : 1940 Age/S: 78 / F [address] [facility] Unit #: [id number] Loc: [place] [address] Phys: Milton Melissa DO Acct: [id number] Dis Date: Status: REG ER PHONE #: [phone] Exam Date: 08/25/2018 164 FAX #: [phone] Reason: pain EXAMS: CPT CODE: [id number] CT ABD PELVIS W/CONT 20159 <Continued> IMPRESSION: Focal fat stranding is seen in the gastrohepatic space with adjacent pooling of contrast in the gastric wall suggesting an ulcer. Contained/impending perforation from a gastric ulcer is suspected. The other possibility is fat necrosis. Recommend further evaluation with upper GI endoscopy. at 1815 Reported and signed by: Joann Fan M.D. CC: Milton Melissa DO Technologist:Tami Duncan RT(R); JAMILAH Berumen CTDI: DLP: Trnscb Date/Time: 08/25/2018 (1814) [email or web address] Orig Print D/T: S: 08/25/2018 (1818) CTDI: DLP: PAGE 2 Signed Report - CT HEAD/BRAIN W/O [id number] 17:20:00 Name: CHIQUI HAIDER [facility] : 1940 Age/S: 78 / F [address] [facility] Unit #: [id number] Loc: [place] [address] Phys: Milton Melissa DO Acct: [id number] Dis Date: Status: REG ER PHONE #: Exam Date: 08/25/2018 1707 FAX #: Reason: fall EXAMS: CPT CODE: [id number] CT HEAD/BRAIN W/O CONT 52112 HISTORY: fall TECHNIQUE: Noncontrast 2.[address] of the head. Examination acquired within 24 hours of arrival. Automated exposure control for dose reduction. COMPARISON: MRI and CT from 06/08/2017. FINDINGS: No acute hemorrhage. No intracranial mass, mass effect, or midline shift. No CT evidence of acute infarct. Barry-white matter differentiation is preserved. Stable age-related changes of prominent sulci and jonna tricles. No hydrocephalus. No extra-axial fluid collection. Intravascular IV contrast is visualized and the kl[place] of [place] appears patent. Visualized paranasal sinuses are clear. Mastoid air cells and middle ear cavities are clear. Bilateral orbital lens implants.. Calvarium and skull base are intact. IMPRESSION: No acute intracranial abnormality. at 1720 Reported and signed by: Joann Fan M.D. CC: David Cardenas DO; Milton Melissa DO Technologist:Tami Duncan RT(R); JAMILAH Berumen CTDI: DLP: Trnscb Date/Time: 08/25/2018 (1720) t.[email or web address] Orig Print D/T: S: 08/25/2018 (2710) CTDI: DLP: PAGE 1 Signed Report BASIC METABOLIC [id number] 16:01:00* Test Item Value Reference Range Interpretation Comments SODIUM (test code = NA) 135 mmol/L 136-145 L POTASSIUM (test code = K) 3.9 mmol/L 3.5-5.1 N CHLORIDE (test code = CL) 101.0 mmol/L 98-107 N CARBON DIOXIDE (test code = CO2) 28.0 mmol/L 21-32 N ANION GAP (test code = GAP) 9.9 10-20 L GLUCOSE (test code = GLU) 76 mg/dL 74-106 N BLOOD UREA NITROGEN (test code = BUN) 25 mg/dL 7-18 H GLOMERULAR FILTRATION RATE (test code = GFR) 54 mL/min >=60 Estimated GFR by using Modified MDRD formula.Chronic kidney disease is defined as either kidney damageor GFR <60 mL/min/1.73 m2 for >3 months. CREATININE (test code = CREAT) 1.00 mg/dL 0.55-1.02 N Note change in reference range due to change in reagent. BUN/CREATININE RATIO (test code = BUN/CREA) 25.0 10-20 H CALCIUM (test code = CA) 9.0 mg/dL 8.5-10.1 N HEPATIC FUNCTION [id number] 16:01:00* Test Item Value Reference Range Interpretation Comments TOTAL PROTEIN (test code = PROT) 7.8 gram/dL 6.4-8.2 N ALBUMIN (test code = ALB) 3.6 g/dL 3.4-5.0 N GLOBULIN (test code = GLOB) 4.2 gram/dL 2.7-4.2 N ALBUMIN/GLOBULIN RATIO (test code = A/G) 0.9 0.75-1.50 N BILIRUBIN TOTAL (test code = BILT) 0.40 mg/dL 0.0-1.0 N BILIRUBIN DIRECT (test code = BILD) 0.12 mg/dL 0.0-0.20 N SGOT/AST (test code = AST) 29 IUnit/L 15-37 N SGPT/ALT (test code = ALT) 32 IUnit/L 12-78 N ALKALINE PHOSPHATASE TOTAL (test code = ALKP) 188 IUnit/L 45-117 H Note change in reference range due to change in reagent. [id number] 16:01:00* Test Item Value Reference Range Interpretation Comments LIPASE (test code = LIP) 168 U/L 73.0-393.0 N [id number] 16:01:00* Test Item Value Reference Range Interpretation Comments TROPONIN-I (test code = TROPI) <0.015 ng/mL 0-0.045 N CBC W/O [id number] 16:01:00* Test Item Value Reference Range Interpretation Comments WHITE BLOOD CELL (test code = WBC) 12.3 K/mm3 4.5-12.5 N RED BLOOD CELL (test code = RBC) 3.91 mill/mm3 3.7-5.2 N HEMOGLOBIN (test code = HGB) 10.7 gram/dL 11.5-15.5 L HEMATOCRIT (test code = HCT) 35.3 % 36.0-46.0 L MEAN CELL VOLUME (test code = MCV) 90.3 fL 80-98 N MEAN CELL HGB (test code = MCH) 27.4 picogram 27.0-33.0 N MEAN CELL HGB CONCETRATION (test code = MCHC) 30.3 gram/dL 33.0-36. 0 L RED CELL DISTRIBUTION WIDTH (test code = RDW) 14.6 % 11.6-16. 2 N PLATELET COUNT (test code = PLT) 444 K/mm3 150-450 N MEAN PLATELET VOLUME (test code = MPV) 10.1 fL 6.7-11.0 N BASIC METABOLIC [id number] 15:57:00* Test Item Value Reference Range Interpretation Comments SODIUM (test code = NA) 135 mmol/L 136-145 L POTASSIUM (test code = K) 3.9 mmol/L 3.5-5.1 N CHLORIDE (test code = CL) 101.0 mmol/L 98-107 N CARBON DIOXIDE (test code = CO2) mmol/L 21-32 ANION GAP (test code = GAP) 10-20 GLUCOSE (test code = GLU) mg/dL 74-106 BLOOD UREA NITROGEN (test code = BUN) mg/dL 7-18 GLOMERULAR FILTRATION RATE (test code = GFR) mL/min >=60 CREATININE (test code = CREAT) mg/dL 0.55-1.02 BUN/CREATININE RATIO (test code = BUN/CREA) 10-20 CALCIUM (test code = CA) mg/dL 8.5-10.1 HEPATIC FUNCTION [id number] 15:57:00* Test Item Value Reference Range Interpretation Comments TOTAL PROTEIN (test code = PROT) gram/dL 6.4-8.2 ALBUMIN (test code = ALB) g/dL 3.4-5.0 GLOBULIN (test code = GLOB) gram/dL 2.7-4.2 ALBUMIN/GLOBULIN RATIO (test code = A/G) 0.75-1.50 BILIRUBIN TOTAL (test code = BILT) mg/dL 0.0-1.0 BILIRUBIN DIRECT (test code = BILD) mg/dL 0.0-0.20 SGOT/AST (test code = AST) IUnit/L 15-37 SGPT/ALT (test code = ALT) IUnit/L 12-78 ALKALINE PHOSPHATASE TOTAL (test code = ALKP) IUnit/L 45-117 [id number] 15:57:00* Test Item Value Reference Range Interpretation Comments LIPASE (test code = LIP) U/L 73.0-393.0 [id number] 15:57:00* Test Item Value Reference Range Interpretation Comments TROPONIN-I (test code = TROPI) ng/mL 0-0.045 URINALYSIS [id number] 15:55:00* Test Item Value Reference Range Interpretation Comments UA COLOR (test code = COLU) YELLOW YELLOW UA APPEARANCE (test code = APPU) CLEAR CLEAR UA GLUCOSE DIPSTICK (test code = DGLUU) NEGATIVE mg/dL NEGATIVE UA BILIRUBIN DIPSTICK (test code = BILU) NEGATIVE mg/dL NEGATIVE UA KETONE DIPSTICK (test code = KETU) Negative mg/dL NEGATIVE UA SPECIFIC GRAVITY (test code = SGU) 1.014 1.001-1.035 UA BLOOD DIPSTICK (test code = ARNALDO) Negative NEGATIVE UA PH DIPSTICK (test code = JOHN) 5.0 5.0-8.0 UA PROTEIN DIPSTICK (test code = PROU) Negative mg/dL NEGATIVE UA UROBILINIOGEN DIPSTICK (test code = URO) NEGATIVE mg/dL NEGATIVE UA NITRITE DIPSTICK (test code = QUOC) NEGATIVE NEGATIVE UA LEUKOCYTE ESTERASE W REFLEX (test code = LEUUR) NEGATIVE NEG ATIVE UA WBC (test code = WBCU) 0-5 #/HPF 0-5 UA RBC (test code = RBCU) 0-3 #/HPF 0-5 UA BACTERIA (test code = BACU) NONE SEEN #/HPF NONE UA HYALINE CAST (test code = HYALU) 0-2 #/LPF 0-5 UA MUCUS (test code = MUCU) FEW #/LPF FEW Urine Source? Clean CatchURINALYSIS [id number] 15:43:00* Test Item Value Reference Range Interpretation Comments UA COLOR (test code = COLU) YELLOW YELLOW UA APPEARANCE (test code = APPU) CLEAR CLEAR UA GLUCOSE DIPSTICK (test code = DGLUU) NEGATIVE mg/dL NEGATIVE UA BILIRUBIN DIPSTICK (test code = BILU) NEGATIVE mg/dL NEGATIVE UA KETONE DIPSTICK (test code = KETU) Negative mg/dL NEGATIVE UA SPECIFIC GRAVITY (test code = SGU) 1.014 1.001-1.035 UA BLOOD DIPSTICK (test code = ARNALDO) Negative NEGATIVE UA PH DIPSTICK (test code = JOHN) 5.0 5.0-8.0 UA PROTEIN DIPSTICK (test code = PROU) Negative mg/dL NEGATIVE UA UROBILINIOGEN DIPSTICK (test code = URO) NEGATIVE mg/dL NEGATIVE UA NITRITE DIPSTICK (test code = QUOC) NEGATIVE NEGATIVE UA LEUKOCYTE ESTERASE W REFLEX (test code = LEUUR) NEGATIVE NEG ATIVE UA WBC (test code = WBCU) per HPF 0-5 Urine Source? Clean Catch- XR CHEST 1 [id number] 13:34:00 FAX: Milton Melissa DO [place]: B St: REG Name: CHIQUI DUMONT [facility] : [birth year] Age/S: 78/F [address] [facility] Unit #: [id number] Loc: [place] [address] Phys: Milton Melissa DO Acct: [id number] Dis Date: Status: REG ER PHONE #: [phone] Exam Date: 08/25/2018 1320 FAX #: [phone] Reason: Abdominal Pain EXAMS: CPT CODE: [id number] XR CHEST 1 V 56662 HISTORY: Abdominal pain. COMPARISON: March 13, 2018. No acute infiltrates, effusion or congestion is noted. Suboptimal inspiration. Dependent changes. The cardiac and mediastinal silhouette are within normal limits. IMPRESSION: No acute infiltrates, effusion or congestion. at 1334 Reported and signed by: Mejia Borjas M.D. CC: Milton Melissa DO [place] hnologist: DANICA MULTANI) Trnscrd Date/T armando/By: 08/25/2018 (2719) : By: [email or web address] Orig Print D/T: S: 9 (6045) PAGE 1 Signed Report MRI SPINE LUMBAR WO [place] [address] Patient Name: CHIQUI HAIDER MR #: [id number] : 1940 Age/Sex: 77/F Req #: [id number] Adm Physician: Ordered by: RADHA CARDENAS DO Report #: [id number] Location: MRI Room/Bed: Procedure: [id number] MRI/MRI SPINE LUMBAR WO Exam Da te: 05/21/17 Exam Time: 1455 REPORT STATUS: Sig rosa Examination: MRI SPINE LUMBAR WITHOUT CONTRAST History: 77-year-old female with chronic back pain radiating down the right lower extremity. Comp arison studies: X-rays of lumbar spine performed April 28, 2017 and e 2009. Technique: Sagittal, coronal and axial T2 , sagittal T1 and STIR; axial spin density oblique. Findings: Number of lumbar verte bral bodies: Five. Alignment: Normal lordosis. Mild leftward curvature cent ered at L3-L4. Soft tissues: No T2 hyperintense inflammatory changes. Crossing Tender ior paraspinal soft tissues and muscles: No abnormality. Lower thoracic cord: Normal in signal and morphology. The tip of the conus is at L1-L2. Cauda eq uina: No masses. No arachnoiditis. Vertebrae: No fractures, infection o r neoplasm. Degenerative changes: L1-L2: Asymmetric to the right dis c bulge results in mild canal stenosis and moderate right and mild left neural foraminal narrowing. L2-L3: Asymmetric to the right disc bulge results in moderate right and mild left neural foraminal narrowing and mild canal steno sis. L3-L4: Asymmetric to the right disc bulge, mild bilateral facet arth ropathy and prominent posterior epidural fat result in moderate right neural f oraminal narrowing and moderate canal stenosis. No left foraminal narrowing . L4-L5: Diffuse disc bulge with central disc protrusion and mild bilater al facet arthropathy result in mild bilateral neural foraminal narrowing and s evere canal stenosis. L5-S1: Diffuse disc bulge and mild bilateral face t arthropathy result in moderate left neural foraminal narrowing. No right foraminal or canal stenosis. IMPRESSION: 1. Degenerative changes at L2-L5 S1 with severe canal stenosis at L4-L5, moderate canal stenosis at L3-L4 and mild canal stenosis at L1-L2 and L2-L3. 2. Moderate right foraminal narr owing from L1-L2 through L3-L4 and moderate left foraminal narrowing at L5-S1. 3. Mild leftward curvature centered at L3-L4. Signed by: Dr. Nikkie dennis M.D. on 05/24/2017 3:59 PM Dictated By: NIKKIE ANDREW MD 155 Zepeda scribed By: GRECIA on 05/24/17 155 COPY TO: RADHA CARDENAS DO CHEST 2 VIEWS [place] [address] Patient Name: CHIQUI HAIDER MR #: [id number] : 1940 Age/Sex: 77/F Req #: [id number] Adm Physician: Ordered by: GLADYS ARREAGA MD Report #: [id number] Location: ER Room/Bed: Procedure: [id number] DX/CHEST 2 VIEWS Exam Date: Exam Time: 1510 REPORT STATUS: Signed EXAMINATION: PA and lateral views of the chest. COMPARISON: None C LINICAL HISTORY: Fall DISCUSSION: Lines/tubes: None. Lungs : The lungs are well inflated and clear. There is no evidence of pneumonia or pulmonary edema. Pleura: There is no pleural effusion or pneumothorax. Heart and mediastinum: The cardiomediastinal silhouette is normal. Bones and soft tissues: No acute bony abnormalities. IMPRESSION: No acute cardiopulmonary abnormalities. Signed by: Dr. David Martin M.D. on 04/28/2017 3:28 PM Dictated By: DAVID MARTIN MD Electronical ly Signed By: DAVID MARTIN MD on 04/28/17 1528 Transcribed By: GRECIA on 06/28/16 1528 COPY TO: GLADYS ARREAGA MD SP LUMBAR AP LATERAL 2-3VWS [facility] [address] [place] [address] Patient Name: CHIQUI HAIDER MR #: [id number] : 1940 Age/Sex: 77/F Req #: [id number] Adm Physician: Ordered by: GLADYS ARREAGA MD Report #: [id number] Location: ER Room/Bed: Procedure: [id number] DX/SP LUMBAR AP LATERAL 2-3VW S Exam Date: 04/28/17 Exam Time: 1256 REPORT S TATUS: Signed Exam: Lumbar spine 2 view History: Back pain Com parison: None. Findings: No fracture. Leftward lumbar curvature. Multilevel disc space narrowing most advanced at L3 and L4 at the concave aspect on the right. Lower lumbar facet arthropathy. No abnormal soft tissue calcification o r soft tissue defect. Impression: Advanced lumbar spondylosis with severe degenerative disc disease L3-L4 and lower lumbar facet arthropathy. Signed by: Dr. David Martin M.D. on 04/28/2017 2:05 PM Dictated By: DAVID MARTIN MD COPY TO: GLADYS ARREAGA MD
--- OUTSIDE RECORDS SUMMARY | 2020-04-17 16:46 | XMS REPORT | Continuity of Care Document ---
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 Role Phone [employer] Unavailable Un available Problems Problem Status Onset Date Classification Date Reported Comments Source Inflammatory Arthritis Active Diagnosis 06/10/2014 Aristides Zhang Polyarthritis, multiple sites Active Problem 01/2015 Aristides Zhang Allergy, unspecified not elsewhere classified Active Problem 06/10/2014 Aristides Zhang Lumbar Radiculopathy Active Problem 06/10/2014 Aristides Zhang Unspecified drug dependence Ac tive Diagnosis 0 06/10/2014 Aristides Zhang Abnormal CHARLIE Active Problem 06/10/2014 Aristides Zhang Medications Medication Details Route Status Patient Instructions Ordering Provider Order Date Source Meloxicam 1 tablet Orally No Longer Active 7.5 MG Orally bid Leslie 05/18/2014 Aristides Zhang Hydrocodone-Acetaminophen 1 ta blet as needed Orally No Longer Active 2.5-500 MG Orally every 6 hrs Leslie 11/19/2013 Aristides Zhang Gabapentin 1 -2 capsule Orally Active 300 MG Orally at bedtim e Zhang 09/24/2013 Aristides Zhang Hydrocodone-Acetaminophen 1 ta blet as needed Orally Active 5-325 MG Orally every 12 hours Zhang 09/24/2013 Aristides Zhang Hydrocodone-Acetaminophen 1 ta blet as needed Orally Active 5-325 MG Orally every 12 hours Olmos 09/24/2013 Aristides Zhang Alendronate Sodium 1 tablet Orally Active 70 MG Orally Olmos Matt Zhang Pravastatin Sodium 1 tablet Orally Active 80 MG Orally Once a day Leslie Aristides Zhang Zetia 1 tablet Orally Active 10 MG Orally Once a day Leslie Anjel Zhagn Naproxen 1 tablet as needed Orally Active 500 MG Orally every 12 hrs Leslie Aristides Zhang Losartan Potassium-HCTZ 1 tabl et Orally Active 50-12.5 MG Orally Once a day Leslie Aristides Zhang Tramadol one tab orally Active 50 mg orally every 4-6 hours prn pain Leslie Aristides Zhang Ranitidine 75 as directed Orally Active 75 MG Orally three time s a day Amarilis Zhang Cetirizine HCl 1 tablet Orally Active 10 MG Orally Twice a da y Amarilis Zhang Duloxetine HCl 1 capsule Orally Active 30 MG Orally qd Leslie Anjel Zhang Aspirin 1 tablet Orally Active 81 MG Orally Once a day Leslie Anjel Zhang Gabapentin 2 caps NA Active 300 mg qd pm Leslie Aristides Zhang Allergies, Adverse Reactions, Alerts Substance Category Reaction Severity Reaction type Status Date Reported Comments Source [place] Adverse Reaction Info Not Available Adverse Reaction Active 05/31/2014 Aristides Zhang Immunizations No Data Provided for This Section Results No Data Provided for This Section Pathology Reports No Data Provided for This Section Diagnostic Reports No Data Provided for This Section Consultation Notes No Data Provided for This Section Discharge Summaries No Data Provided for This Section History and Physicals No Data Provided for This Section Vital Signs Vital Sign Value Date Comments Source Weight 179 05/31/2014 Aristides Zhang Height 61 1 Aristides Zhang Temperature Oral (F) 98.2 F 05/31/2014 Aristides Zhang Heart Rate 76 05/31/2014 Aristides Zhang Diastolic (mm Hg) 84 05/31/2014 Aristides Zhang Systolic (mm Hg) 124 05/31/2014 Aristides Loveer Weight 183 10/14/2013 Aristides Loveer Height 61 0 10/14/2013 Aristides Loveer Weight 182 09/24/2013 Aristides Zhang Height 61 0 09/24/2013 Aristides Loveer Temperature Oral (F) 98.4 F 09/24/2013 Aristides Loveer Heart Rate 80 09/24/2013 Aristides Zhang Diastolic (mm Hg) 80 09/24/2013 Aristides Zhang Systolic (mm Hg) 130 09/24/2013 Aristides Zhang Encounters Location Location Details Encounter Type Encounter Number Reason For Visit Attending Provider ADM Date DC Date Status Source Axel Zhang MD [facility] [id number] 09/25/19 14 09/24/2013 Aristides Zhang MD [facility] [id number] 09/25/19 14 09/24/2013 Aristides Zhang MD [facility] [id number] 09/25/19 14 09/24/2013 Aristides Zhang MD [facility] [id number] 09/25/19 14 09/24/2013 Aristides Zhang MD [facility] [id number] 09/25/19 14 09/24/2013 Aristides Zhang MD [facility] [id number] 09/25/19 14 09/24/2013 Aristides Zhang MD [facility] [id number] 09/25/19 14 09/24/2013 Aristides Zhang MD [facility] [id number] 09/25/19 14 09/24/2013 Aristides Zhang MD [facility] [id number] 09/25/19 14 09/24/2013 Aristides Zhang MD reschedule f/u [id number] 09/25/19 14 09/24/2013 Aristides Zhang MD reschedule f/u [id number] 09/25/19 14 09/24/2013 Aristides Zhang MD reschedule f/u [id number] 09/25/19 14 09/24/2013 Aristides Zhang MD reschedule f/u [id number] 09/25/19 14 09/24/2013 Aristides Zhang MD reschedule f/u [id number] 09/25/19 14 09/24/2013 Aristides Zhang MD reschedule f/u [id number] 09/25/19 14 09/24/2013 Aristides Zhang MD reschedule f/u [id number] 09/25/19 14 09/24/2013 Aristides Zhang MD reschedule f/u [id number] 09/25/19 14 09/24/2013 Aristides Zhang MD reschedule f/u [id number] 09/25/19 14 09/24/2013 Aristides Zhang MD reschedule f/u [id number] 09/25/19 14 09/24/2013 Aristides Zhang MD reschedule f/u [id number] 09/25/19 14 09/24/2013 Aristides Zhang MD [facility] [id number] 09/26/19 14 09/25/2013 Aristides Zhang MD [facility] [id number] 09/26/19 14 09/25/2013 Aristides Zhang MD Gabapentin [id number] 09/26/19 14 09/25/2013 Aristides Zhang MD Gabapentin [id number] 09/26/19 14 09/25/2013 Aristides Zhang MD Gabapentin [id number] 09/26/19 14 09/25/2013 Aristides Zhang MD Gabapentin [id number] 09/26/19 14 09/25/2013 Aristides Zhang MD Gabapentin [id number] 09/26/19 14 09/25/2013 Aristides Zhang MD Gabapentin [id number] 09/26/19 14 09/25/2013 Aristides Zhang MD Gabapentin [id number] 09/26/19 14 09/25/2013 Aristides Zhang MD Gabapentin [id number] 09/26/19 14 09/25/2013 Aristides Zhang MD Gabapentin [id number] 09/26/19 14 09/25/2013 Aristides Zhang MD Gabapentin [id number] 09/26/19 14 09/25/2013 Aristides Zhang MD New order form For [facility] [id number] 09/29/19 14 09/28/2013 Aristides Zhang MD New order form For [facility] [id number] 09/29/19 14 09/28/2013 Aristides Zhang MD New order form For [facility] [id number] 09/29/19 14 09/28/2013 Aristides Zhang MD New order form For MRI [id number] 09/29/19 14 09/28/2013 Aristides Zhang MD New order form For MRI [id number] 09/29/19 14 09/28/2013 Aristides Zhang MD New order form For MRI [id number] 09/29/19 14 09/28/2013 Aristides Zhang MD New order form For MRI [id number] 09/29/19 14 09/28/2013 Aristides Zhang MD New order form For MRI [id number] 09/29/19 14 09/28/2013 Aristides Zhang MD New order form For MRI [id number] 09/29/19 14 09/28/2013 Aristides Zhang MD New order form For MRI [id number] 09/29/19 14 09/28/2013 Aristides Zhang MD New order form For MRI [id number] 09/29/19 14 09/28/2013 Aristides Zhang MD New order form For MRI [id number] 09/29/19 14 09/28/2013 Aristides Zhang MD New order form For MRI [id number] 09/29/19 14 09/28/2013 Aristides Zhang MD Unknown [id number] 10/15/19 14 10/14/2013 Aristides Zhang MD Unknown [id number] 10/15/19 14 10/14/2013 Aristides Zhang MD Unknown [id number] 10/15/19 14 10/14/2013 Aristides Zhang MD Unknown [id number] 10/15/19 14 10/14/2013 Aristides Zhang MD Unknown [id number] 10/15/19 14 10/14/2013 Aristides Zhang MD Unknown [id number] 10/15/19 14 10/14/2013 Aristides Zhang MD Unknown [id number] 10/15/19 14 10/14/2013 Aristides Zhang MD Unknown [id number] 10/15/19 14 10/14/2013 Aristides Zhang MD Unknown [id number] 10/15/19 14 10/14/2013 Aristides Zhang MD Referral [id number] 10/20/19 14 10/19/2013 Aristides Zhang MD Referral [id number] 10/20/19 14 10/19/2013 Aristides Zhang MD Referral [id number] 10/20/19 14 10/19/2013 Aristides Zhang MD Referral [id number] 10/20/19 14 10/19/2013 Aristides Zhang MD Referral [id number] 10/20/19 14 10/19/2013 Aristides Zhang MD Referral [id number] 10/20/19 14 10/19/2013 Aristides Zhang MD Referral [id number] 10/20/19 14 10/19/2013 Aristides Zhang MD Referral [id number] 10/20/19 14 10/19/2013 Aristides Zhang MD Referral [id number] 10/20/19 14 10/19/2013 Aristides Zhang MD Referral [id number] 10/20/19 14 10/19/2013 Aristides Zhang MD pt call [id number] 11/03/19 14 11/02/2013 Aristides Zhang MD pt call [id number] 11/03/19 14 11/02/2013 Aristides Zhang MD pt call [id number] 11/03/19 14 11/02/2013 Aristides Zhang MD pt call [id number] 11/03/19 14 11/02/2013 Aristides Zhang MD pt call [id number] 11/03/19 14 11/02/2013 Aristides Zhang MD pt call [id number] 11/03/19 14 11/02/2013 Aristides Zhang MD pt call [id number] 11/03/19 14 11/02/2013 Aristides Zhang MD pt call [id number] 11/03/19 14 11/02/2013 Aristides Zhang MD pt call [id number] 11/03/19 14 11/02/2013 Aristides Zhang MD [facility] [id number] 11/06/2013 11/06/2013 Aristides Zhang MD [facility] [id number] 11/06/2013 11/06/2013 Aristides Zhang MD MRI [id number] 11/06/2013 11/06/2013 Aristides Zhang MD MRI [id number] 11/06/2013 11/06/2013 Aristides Zhang MD MRI [id number] 11/06/2013 11/06/2013 Aristides Zhang MD MRI [id number] 11/06/2013 11/06/2013 Aristides Zhang MD MRI [id number] 11/06/2013 11/06/2013 Aristides Zhang MD MRI [id number] 11/06/2013 11/06/2013 Aristides Zhang MD MRI [id number] 11/06/2013 11/06/2013 Aristides Zhang MD Pt back pain update [id number] 11/19/19 14 11/18/2013 Aristides Zhang MD Pt back pain update [id number] 11/19/19 14 11/18/2013 Aristides Zhang MD Pt back pain update [id number] 11/19/19 14 11/18/2013 Aristides Zhang MD Pt back pain update [id number] 11/19/19 14 11/18/2013 Aristides Zhang MD Pt back pain update [id number] 11/19/19 14 11/18/2013 Aristides Zhang MD Pt back pain update [id number] 11/19/19 14 11/18/2013 Aristides Zhang MD Pt back pain update [id number] 11/19/19 14 11/18/2013 Aristides Zhang MD Pt back pain update [id number] 11/19/19 14 11/18/2013 Aristides Zhang MD Pt back pain update [id number] 11/19/19 14 11/18/2013 Aristides Zhang MD Gabapentin [id number] 11/19/19 14 11/18/2013 Aristides Zhang MD Gabapentin [id number] 11/19/19 14 11/18/2013 Aristides Zhang MD Gabapentin [id number] 11/19/19 14 11/18/2013 Aristides Zhang MD Gabapentin [id number] 11/19/19 14 11/18/2013 Aristides Zhang MD Gabapentin [id number] 11/19/19 14 11/18/2013 Aristides Zhang MD Gabapentin [id number] 11/19/19 14 11/18/2013 Aristides Zhang MD Gabapentin [id number] 11/19/19 14 11/18/2013 Aristides Zhang MD Gabapentin [id number] 11/19/19 14 11/18/2013 Aristides Zhang MD Gabapentin [id number] 11/19/19 14 11/18/2013 Aristides Zhang MD refill hydrocodone [id number] 11/20/19 14 11/19/2013 Aristides Zhang MD refill hydrocodone [id number] 11/20/19 14 11/19/2013 Aristides Zhang MD refill hydrocodone [id number] 11/20/19 14 11/19/2013 Aristides Zhang MD refill hydrocodone [id number] 11/20/19 14 11/19/2013 Aristides Zhang MD refill hydrocodone [id number] 11/20/19 14 11/19/2013 Aristides Zhang MD refill hydrocodone [id number] 11/20/19 14 11/19/2013 Aristides Zhang MD refill hydrocodone [id number] 11/20/19 14 11/19/2013 Aristides Zhang MD refill hydrocodone [id number] 11/20/19 14 11/19/2013 Aristides Zhang MD refill hydrocodone [id number] 11/20/19 14 11/19/2013 Aristides Zhang MD No longer wants to be seen here [id number] 12/15/2013 12/15/2013 Aristides Zhang MD No longer wants to be seen here [id number] 12/15/2013 12/15/2013 Aristides Zhang MD F/U [id number] 05/31/2014 05/31/2014 Aristides Zhang Procedures No Data Provided for This Section Assessment and Plan No Data Provided for This Section Plan of Care No Data Provided for This Section Social History Social History Date Source Social History ElementQualifiersDate Rep orted Tobacco Use: . Are you a:: former smoker , How long has it been since you last smoked?: 5- 10 years May 31, 2014 Pets: . dogs May 31, 2014 Caffeine: yes. frequency:, 1-5 May 31, 2014 Exercise: yes. walking 3 times a week May 31, 2014 Alcohol: no. May 31, 2014 Occupation: . retired May 31, 2014 05/31/2014 Aristides Zhang Family History No Data Provided for This Section Advance Directives No Data Provided for This Section Functional Status No Data Provided for This Section
--- NOTE | 2020-04-17 17:37 | Diagnostic Imaging Report ---
EXAMINATION: Head CT HISTORY: 80-year-old female status post fall, weakness, pain COMPARISON: Head CT 06/02/2010 TECHNIQUE: Helical axial images of the head were obtained. Reformatted coronal and sagittal images from the axial data. Dose modulation, iterative reconstruction, and/or weight based adjustment of the mA/kV was utilized to reduce the radiation dose to as low as reasonably achievable. FINDINGS: Parenchyma: 1. Few scattered and mildly confluent periventricular white matter hypodensities, most likely nonspecific chronic microvascular ischemic changes. 2. No mass or hemorrhage. No CT evidence of acute territorial vascular insult. Extra-axial spaces:No abnormal density. No extra-axial fluid collections Brain volume: Normal for age. Ventricles: No hydrocephalus or displacement. Arteries: No density suggestive of thrombus. Dural sinuses: No abnormal density. Foramen magnum: No mass, Chiari malformation, or basilar invagination. Sella: No obvious mass. Paranasal/mastoid sinuses: Imaged portions unremarkable. Skull/Scalp: No lytic or blastic lesions. No fractures. IMPRESSION: 1. No acute posttraumatic intracranial abnormalities, particularly no hemorrhagic. 2. Mild chronic microvascular ischemic changes. Signed by: Dr. Cindy Biggs M.D. on 04/17/2020 5:34 PM
[2020-04-17 17:45] LABS: BILIRUBIN,URINE NEGATIVE (NEGATIVE); CLARITY,URINE CLEAR (CLEAR); COLOR,URINE YELLOW (YELLOW); KETONES,URINE NEGATIVE (NEGATIVE); LEUKOCYTE ESTERASE ,URINE NEGATIVE (NEGATIVE); NITRITE,URINE NEGATIVE (NEGATIVE); PROTEIN,URINE DIPSTICK NEGATIVE (NEGATIVE); URINE UROBILINOGEN 0.2 mg/dL (0.2 - 1)
[2020-04-17 17:52] LABS: BASOPHILS # (AUTO) 0.1 (0.0-0.1); BASOPHILS % 0.8 % (0.0-1.0); EOSINOPHILS # (AUTO) 2.2 (0.0-0.4); EOSINOPHILS % 19.1 % (0.0-6.0); HEMATOCRIT 40.1 % (34.2-44.1); HEMOGLOBIN 12.3 g/dL (12.0-16.0); LYMPHOCYTES # (AUTO) 1.1 (1.0-3.2); LYMPHOCYTES % 9.6 % (18.0-39.1); MEAN CORPUSCULAR HEMOGLOBIN 26.6 pg (28-32); MEAN CORPUSCULAR HGB CONC 30.7 g/dL (31-35); MEAN CORPUSCULAR VOLUME 86.8 fL (81-99); MONOCYTES # (AUTO) 0.7 (0.2-0.8); MONOCYTES % 6.6 % (4.4-11.3); NEUTROPHILS # (AUTO) 7.1 (2.1-6.9); NEUTROPHILS % 63.5 % (38.7-80.0); PLATELET COUNT 416 x10e3/uL (140-360); RED BLOOD COUNT 4.62 x10e6/uL (3.6-5.1); RED CELL DISTRIBUTION WIDTH 14.6 % (11.7-14.4)
[2020-04-17 17:56] LABS: BACTERIA,URINE FEW /HPF; EPITHELIAL CELLS,URINE FEW /LPF; MUCUS,URINE FEW (RARE); RBC,URINE 0-5 /HPF (0-5); WBC,URINE (MAN) 0-5 /HPF (0-5)
--- NOTE | 2020-04-17 17:56 | Diagnostic Imaging Report ---
EXAMINATION: CHEST SINGLE (PORTABLE) INDICATION: Weakness after recent fall. COMPARISON: Chest x-ray on 04/28/2017. FINDINGS: TUBES and LINES: None. LUNGS: Normal lung volumes. There is diffuse interstitial prominence throughout both lungs. Bibasilar atelectasis. No consolidations. PLEURA: No pleural effusion or pneumothorax. HEART AND MEDIASTINUM: The cardiomediastinal silhouette is unremarkable. BONES AND SOFT TISSUES: No acute osseous lesion. Multilobulated hyperdensity projecting over the partially imaged left humeral head. Soft tissues are unremarkable. UPPER ABDOMEN: No free air under the diaphragm. IMPRESSION: 1. Diffuse interstitial prominence throughout both lungs which may be related to reactive airway disease, bronchitis or pulmonary vascular congestion. 2. Multilobulated hyperdensity projecting over the partially imaged left humeral head, not seen on prior examination. This may represent an intraosseous lesion versus hydroxyapatite deposition within the glenohumeral joint space. Recommend dedicated left shoulder x-rays. Signed by: Charles Pedraza MD on 04/17/2020 5:53 PM
--- NOTE | 2020-04-17 17:56 | Diagnostic Imaging Report ---
EXAMINATION: CT of the cervical spine HISTORY: 80-year-old female status post fall, trauma, pain COMPARISON: None available TECHNIQUE: Multidetector helical axial images were obtained without contrast from the foramen magnum to T1. Dose modulation, iterative reconstruction, and/or weight based adjustment of the mA/kV was utilized to reduce the radiation dose to as low as reasonably achievable. FINDINGS: Alignment: There is facet of the cervical lordosis centered at C5-C6. Grade 1 anterolisthesis of C2 on C3 and C3 on C4. Soft tissues: Normal Vertebrae: Normal height and density. No acute fracture, infection or neoplasm Degenerative changes: C1-C2: Minimal degenerative changes with marginal osteophyte, articular space narrowing. Thickening of the atlantodental interval ligaments and mild narrowing of the current cervical junction. C2-C3: Prominent facet arthrosis. No stenoses. C3-C4: Fusion of the posterior elements. Small disc osteophyte complex formation. No stenosis. C4-C5: Small disc osteophyte, uncovertebral and facet arthrosis. No significant stenoses. C5-C6: Asymmetric right disc osteophyte, uncovertebral and facet arthrosis. Moderate right and mild left foraminal stenoses. C6-C7: Disc osteophyte compresses formation, bilateral uncovertebral and facet arthrosis. Moderate right and severe left foraminal stenosis. C7-T1: Bilateral facet arthrosis. Mild left foraminal narrowing. IMPRESSION: 1. No acute cervical spine postraumatic abnormalities. 2. Multilevel chronic degenerative changes as detailed above. 3. Reversal of the cervical lordosis and spondylolisthesis at C3-C4 and C4-C5. Note: Acute postraumatic spinal cord, vascular or ligamentous injuries cannot adequately be assessed by CT. Signed by: Dr. Cindy Biggs M.D. on 04/17/2020 5:52 PM
[2020-04-17] MEDS ORDERED: SODIUM CHLORIDE 0.9% 1000ML 1,000 ML IV STA (18:07)
--- NOTE | 2020-04-17 18:09 | NUR ---
pt does not meet sepsis criteria per Dr. Yung
[2020-04-17 18:10] LABS: ALBUMIN 3.9 g/dL (3.5-5.0); ALBUMIN/GLOBULIN RATIO 0.9 (0.8-2.0); CALCIUM 10.2 mg/dL (8.4-10.2); CREATININE, SERUM 1.19 mg/dL (0.57-1.11)
[2020-04-17 18:16] LABS: CREATINE KINASE MB 3.1 ng/mL (0-5.0)
[2020-04-17 18:30] LABS: B-TYPE NATRIURETIC PEPTIDE2 93.4 pg/mL (0-100)
--- NOTE | 2020-04-17 18:35 | Emergency Department Note ---
History of Present Illnes History of Present Illness Chief Complaint: General Medicine Complaints History of Present Illness This is a 80 year old female PATIENT BROUGHT FROM INDEPENDENT LIVING ([facility]). HER NEIGHBORS HEARD HER YELLING AND CALLED 911. SHE WAS FOUND ON FLOOR. PATIENT ARRIVED ALERT/ORIENTED X 3 BUT SLOW TO RESPOND TO QUESTIONS/CONFUSED. SAYS SHE WOKE ON FLOOR AND DOESN'T KNOW WHAT HAPPENED, THINKS SHE FELL/PASSED OUT. Historian: Calender Let Off Helper/EMS Arrival Mode: [place] Additional Treatment DRY MAN: NONE Human Resources Administrator Required: No Onset (how long ago): hour(s) Location: NO PAIN Radiation: Reports non-radiation Severity: unable to specify Onset quality: sudden Timing of current episode: sporadic Chronicity: new Context: Denies recent illness Relieving factors: none Exacerbating factors: none Associated symptoms: Reports denies other symptoms (STEPHAN KAUR MD) Past Medical/Family History Physician Review I have reviewed the patient's past medical and family history. Any updates have been documented here. (STEPHAN KAUR MD) Past Medical History Recent Fever: No Clinical Suspicion of Infectio: No New/Unexplained Change in Ment: No Past Medical History: Hypertension, Hyperlipedemia Other Medical History: HIGH CHOLESTEROL Sciatica GASTRIC ULCER W/BLEED Other Surgery: UNKNOWN (STEPHAN KAUR MD) Social History Smoking Cessation: Never Smoker Counseling Performed: No Alcohol Use: None Any Illegal Drug Use: No TB Exposure/Symptoms: No Physically hurt or threatened: No (STEPHAN KAUR MD) Family History Family history of heart diseas: No (STEPHAN KAUR MD) Other Last Tetanus: <5yrs Any Pre-Existing Lines (PICC,: No (STEPHAN KAUR MD) Review of Systems Review of Systems Constitutional: Reports no symptoms EENTM: Reports no symptoms Cardiovascular: Reports syncope Respiratory: Reports no symptoms Gastrointestinal: Reports no symptoms Genitourinary: Reports no symptoms Musculoskeletal: Reports no symptoms Integumentary: Reports no symptoms Neurological: Reports as per HPI Psychological: Reports no symptoms Endocrine: Reports no symptoms Hematological/Lymphatic: Reports no symptoms (STEPHAN KAUR MD) Physical Exam Related Data Allergies: Coded Allergies: No Known Allergies (Verified , 04/28/17) Triage Vital Signs Vital Signs Date Time Temp Pulse Resp B/P (MAP) Pulse Ox O2 Delivery O2 Flow Rate FiO2 04/17/20 16:42 98.5 57 18 135/75 96 Room Air Vital signs reviewed: Yes (STEPHAN KAUR MD) Physical Exam CONSTITUTIONAL Constitutional: Present well-developed, Present well-nourished, Present obese HENT HENT: Present normocephalic, Present atraumatic, Present oropharynx clear/moist, Present nose normal HENT L/R: Present left TM normal, Present right TM normal, Present left ext ear normal, Present right ext ear normal EYES Eyes: Reports PERRL, Reports conjunctivae normal NECK Neck: Present ROM normal, Present supple, Present other (NO MIDLINE TTP) PULMONARY Pulmonary: Present effort normal, Present other (DECR BS'S BILAT) CARDIOVASCULAR Cardiovascular: Present regular rhythm, Present heart sounds normal, Present capillary refill normal, Present normal rate GASTROINTESTINAL Abdominal: Present soft, Present nontender, Present bowel sounds normal GENITOURINARY Genitourinary: Present exam deferred SKIN Skin: Present warm, Present dry MUSCULOSKELETAL Musculoskeletal: Present ROM normal NEUROLOGICAL Neurological: Present alert, Present oriented x 3, Present no gross motor or sensory deficits, Present other (SLOW TO RESPOND TO Q'S, STARES OFF AT TIMES) PSYCHOLOGICAL Psychological: Present mood/affect normal, Present judgement normal (STEPHAN LUO MD) Results Laboratory Result Diagram: 04/17/20 1740 04/17/20 1740 Laboratory Laboratory Tests Test 04/17/20 17:40 04/17/20 17:28 White Blood Count 11.23 x10e3/uL (4.8-10.8) Red Blood Count 4.62 x10e6/uL (3.6-5.1) Hemoglobin 12.3 g/dL (12.0-16.0) Hematocrit 40.1 % (34.2-44.1) Mean Corpuscular Volume 86.8 fL (81-99) Mean Corpuscular Hemoglobin 26.6 pg (28-32) Mean Corpuscular Hemoglobin Concent 30.7 g/dL (31-35) Red Cell Distribution Width 14.6 % (11.7-14.4) Platelet Count 416 x10e3/uL (140-360) Neutrophils (%) (Auto) 63.5 % (38.7-80.0) Lymphocytes (%) (Auto) 9.6 % (18.0-39.1) Monocytes (%) (Auto) 6.6 % (4.4-11.3) Eosinophils (%) (Auto) 19.1 % (0.0-6.0) Basophils (%) (Auto) 0.8 % (0.0-1.0) Neutrophils # (Auto) 7.1 (2.1-6.9) Lymphocytes # (Auto) 1.1 (1.0-3.2) Monocytes # (Auto) 0.7 (0.2-0.8) Eosinophils # (Auto) 2.2 (0.0-0.4) Basophils # (Auto) 0.1 (0.0-0.1) Absolute Immature Granulocyte (auto 0.05 x10e3/uL (0-0.1) Sodium Level 141 mmol/L (136-145) Potassium Level 5.0 mmol/L (3.5-5.1) Chloride Level 104 mmol/L (98-107) Carbon Dioxide Level 21 mmol/L (22-29) Anion Gap 21.0 mmol/L (8-16) Blood Urea Nitrogen 17 mg/dL (7-26) Creatinine 1.19 mg/dL (0.57-1.11) Estimat Glomerular Filtration Rate 44 ML/MIN (60-) BUN/Creatinine Ratio 14 (6-25) Glucose Level 93 mg/dL (74-118) Lactic Acid Level 3.4 mmol/L (0.5-2.0) Calcium Level 10.2 mg/dL (8.4-10.2) Magnesium Level 1.8 MG/DL (1.3-2.1) Total Bilirubin 0.6 mg/dL (0.2-1.2) Aspartate Amino Transf (AST/SGOT) 136 IU/L (5-34) Alanine Aminotransferase (ALT/SGPT) 206 IU/L (0-55) Alkaline Phosphatase 692 IU/L (40-150) Creatine Kinase 73 IU/L (29-168) Total Protein 8.4 g/dL (6.5-8.1) Albumin 3.9 g/dL (3.5-5.0) Globulin 4.5 g/dL (2.3-3.5) Albumin/Globulin Ratio 0.9 (0.8-2.0) Urine Color Yellow (YELLOW) Urine Clarity Clear (CLEAR) Urine pH 6 (5 - 7) Urine Specific [place] 1.025 (1.010-1.025) Urine Protein Negative (NEGATIVE) Urine Glucose (UA) Negative (NEGATIVE) Urine Ketones Negative (NEGATIVE) Urine Blood Trace (NEGATIVE) Urine Nitrite Negative (NEGATIVE) Urine Bilirubin Negative (NEGATIVE) Urine Urobilinogen 0.2 mg/dL (0.2 - 1) Urine Leukocyte Esterase Negative (NEGATIVE) Urine RBC 0-5 /HPF (0-5) Urine WBC 0-5 /HPF (0-5) Urine Epithelial Cells Few /LPF (NONE) Urine Bacteria Few /HPF (NONE) Urine Mucus Few (RARE) Lab results reviewed: Yes (STEPHAN KAUR MD) Lab results reviewed: Yes (ROSELIA HARVEY MD) Imaging Imaging results reviewed: Yes (ROSELIA HARVEY MD) Procedures 12 Lead ECG Interpretation ECG Interpretation : ECG: ECG 1 Human Resources Administrator: Interpreted by ED physician Date: Apr 17, 2020 Time: 16:37 Rhythm: sinus rhythm Rate: normal BPM: 79 QRS axis: normal ST segments normal: Yes T waves normal: Yes Clinical Impression: normal ECG (STEPHAN KAUR MD) Assessment & Plan Medical Decision Making MDM SYNCOPE/FALL, AMS - CBC, CHEM, ECG, CARDIACS, CT BRAIN/C-SPINE, UA/CX, CXR - R/O CEREBRAL BLEED, CERV FX, UTI, STEMI/NSTEMI, DYSRHYTHMIA. ADMIT (STEPHAN KAUR MD) MDM PT FOUND TO HAVE CALCIFIED NODULE TO LIVER DOME DR BURRIS AT [facility] ACCEPTS PT FOR TRANSFER WITHOUT CONFERENCE (ROSELIA HARVEY MD) Reassessment Reassessment A LACTIC ACID WAS SENT ON PT BUT SHE HAS NO SIRS CRITERIA, ELEVATED LACTIC IS NOT DUE TO SEPSIS BUT VOLUME DEPLETION - IVF'S RUNNING. LABS, CT'S TO BE F/U BY ONCOMING ER MD DR HARVEY (STEPHAN KAUR MD) Assessment & Plan Final Impression: (1) Syncope and collapse (STEPHAN KAUR MD) Final Impression: (1) Syncope and collapse (2) Elevated liver transaminase level (3) Liver nodule (ROSELIA HARVEY MD) Depart Disposition: TRANS TO OTHER [facility] Last Vital Signs Date Time Temp Pulse Resp B/P (MAP) Pulse Ox O2 Delivery O2 Flow Rate FiO2 04/17/20 16:42 98.5 57 18 135/75 96 Room Air (STEPHAN KAUR MD) Home Meds Reported Medications Pantoprazole Sodium (PANTOPRAZOLE SODIUM) 20 Mg Tablet.dr, 40 MG PO BID 09/18/18 Tramadol Hcl (ULTRAM) 50 Mg Tablet, 50 MG PO PRN, TAB 09/18/18 Mu-Vits-Min Th/Lycopene/Lutein (CENTRUM SILVER TABLET) 1 Each Tablet, 1 TAB PO DAILY 07/11/18 Cholecalciferol (Vitamin D3) (VITAMIN D3) 2,000 Unit Capsule, 2000 INTLU PO DAILY 07/11/18 Duloxetine Hcl (CYMBALTA) 60 Mg Capsule.dr, 60 MG PO DAILY 07/11/18 Ferrous Sulfate (FERROUS SULFATE) 325 Mg Tablet, 325 MG PO every other day 07/11/18 Famotidine (FAMOTIDINE) 20 Mg Tab, 20 MG PO DAILY, #30 TAB 07/11/18 Losartan/Hydrochlorothiazide (LOSARTAN-HCTZ 100-25 MG TAB) 1 Each Tablet, 1 TAB PO DAILY 07/11/18 Pravastatin Sodium (PRAVASTATIN SODIUM) 80 Mg Tablet, 80 MG PO BEDTIME 02/05/14 Medications in the ED Sodium Chloride 1,000 ml @ 0 mls/hr Q0M STAT IV ; Start 04/17/20 at 18:07; Stop 04/17/20 at 18:10; Status DC (STEPHAN KAUR MD) STEPHAN KAUR MD Apr 17, 2020 18:35 ROSELIA HARVEY MD Apr 17, 2020 20:39
[2020-04-17] MEDS ORDERED: IOPAMIDOL 370 MG/ML 200 ML INFUS..BTL INJ ONE (18:50)
[2020-04-17] MEDS ORDERED: SODIUM CHLORIDE 0.9% 50ML 50 ML ONE (18:50)
--- NOTE | 2020-04-17 18:54 | NUR ---
pt to CT Scan at this time
--- NOTE | 2020-04-17 18:56 | NUR ---
report given to Stefano CARDONA
--- NOTE | 2020-04-17 19:53 | Diagnostic Imaging Report ---
EXAM: CT Abdomen and Pelvis WITH contrast INDICATION: ^ELEV LFT'S ^[id number] ^[id number] COMPARISON: None. TECHNIQUE: Abdomen and pelvis were scanned utilizing a multidetector helical scanner from the lung base to the pubic symphysis after administration of IV contrast. Coronal and sagittal reformations were obtained. Routine protocol was performed. Scan was performed when during portal venous phase. IV CONTRAST: 100 mL of Isovue 370 ORAL CONTRAST: None COMPLICATIONS: None RADIATION DOSE: Total DLP: 377 mGy*cm Estimated effective dose: (DLP x 0.015 x size factor) mSv CTDIvol has been reviewed. It is below the limits set by the Radiation Protocol Committee (RPC). Dose modulation, iterative reconstruction, and/or weight based adjustment of the mA/kV was utilized to reduce the radiation dose to as low as reasonably achievable. FINDINGS: LINES and TUBES: Urinary bladder Wright catheter in place, tip and retention balloon within the bladder lumen. None. LOWER THORAX: aortic valve calcifications. HEPATOBILIARY: Dense calcified nodule along the superior aspect of the liver is likely a benign calcified lipoma of [place]'s capsule. No focal hepatic lesions. No intrahepatic biliary ductal dilation. Subtle distal common bile duct dilation is expected status post cholecystectomy. GALLBLADDER: There are cholecystectomy clips. SPLEEN: No splenomegaly. Multiple subtle focal hypodensities in the spleen, likely perfusional. PANCREAS: No focal masses or ductal dilatation. ADRENALS: No adrenal nodules KIDNEYS/URETERS: Kidneys enhance symmetrically. No hydronephrosis. No cystic or solid mass lesions. No stones. GI TRACT: Small sliding gastric hiatal hernia. No abnormal distention, wall thickening, or evidence of bowel obstruction. No appendicitis. PELVIC ORGANS/BLADDER: Hysterectomy. No neck masses. Urinary bladder under distended with Wright catheter in place.. LYMPH NODES: No lymphadenopathy. VESSELS: Arterial calcifications. PERITONEUM / RETROPERITONEUM: No free air or fluid. BONES: Partially visualized right proximal femoral fixation hardware. Advanced degenerative changes. Nonhealed chronic right pubic fracture deformities. SOFT TISSUES: Benign calcified subcutaneous gluteal granulomata. IMPRESSION: No acute CT abnormality in the abdomen or pelvis. Chronic findings as above. Signed by: Kvng Flores DO on 04/17/2020 7:50 PM
--- NOTE | 2020-04-17 20:08 | Diagnostic Imaging Report ---
X-ray left shoulder 2 views HISTORY: Pain. COMPARISON: None available. FINDINGS: Bones: No acute displaced fracture. Osseous alignment is within normal limits. . Joints: The joint spaces are well-maintained. Degenerative changes in the shoulder. Soft tissues: Globular dense calcifications about the shoulder, which rotate on internal and external rotation IMPRESSION: No radiographic evidence of fracture. Rotator cuff calcific tendinopathy. Signed by: Kvng Flores DO on 04/17/2020 8:04 PM
--- NOTE | 2020-04-17 21:24 | NUR ---
PATIENT MULTIPLE TIMES HAS BEEN REORIENTATED TO KEEP HER ARM STRAIGHT SO IV FLUIDS CAN BE GIVEN TO HER, PATIENT HAS REFUSED TO KEEP ARM STRAIGHT. INFORMED OF RISKS AND DELAYS OF CARE IN REFUSAL. PATIENT ASSUMES RISKS. DR HARVEY INFORMED. PATIENT IS ALERT X3, MAKING NEEDS KNOWN. SHE AT THIS MOMENT HAS AGREED TO KEEP HER ARM STRAIGHT HOWEVER, ROLLED HER EYES AT THIS NURSE.
[2020-04-17 23:01] VITALS: BP 134/67
== END 2020-04-17 22:15 | disposition other institution (70) ==
LOC: ER 16:44
DX: R55 Syncope and collapse (principal); K76.9 Liver disease, unspecified; R74.01 Elevation of levels of liver transaminase levels
CPT/HCPCS: 36415; 51700; 70450; 71045; 72125; 73030; 74177; 80053; 81001; 82550; 82553; 83605; 83735; 83880; 84484; 85025; 87086; 93005; 99284; Q9967